=== PATIENT | female | born 1960 | race Caucasian/White ===

== ENCOUNTER 2017-03-22 18:01 | Inpatient (IN) | payer BC ==
[2017-03-22 18:57] LABS: Comments Flag Yes; Hematocrit 46 % (35-47); Hemoglobin 15.8 g/dl (12.0-16.0); Mean Corpuscular HGB Conc 35 g/dl (31-36); Mean Corpuscular Hemoglobin 32 pg (27-31); Mean Corpuscular Volume 93 fL (80-97); Mean Platelet Volume 8 um3 (7.4-10.4); Red Blood Count 4.88 10^6/ul (4.0-5.4); Red Cell Distribution Width 16 % (10.5-15); White Blood Count 2.1 10^3/ul (3.5-10.8)
[2017-03-22 18:58] LABS: Add Diff/Slide Review? Slide Review Added
[2017-03-22 19:01] LABS: Albumin 4.2 g/dL (3.2-5.2); Calcium 9.5 mg/dL (8.6-10.3); EGFR African American 60.5 (>60); Globulin 3.6 g/dL (2-4); Total Bilirubin 0.9 mg/dL (0.2-1.0); Total Protein 7.8 g/dL (6.4-8.9)
[2017-03-22] MEDS ORDERED: NS 0.9% 1000 ML* 1,000 ML IV ONE ×2 (19:28→22:37)
[2017-03-22 19:49] LABS: Potassium 3.2 mmol/L (3.5-5.0)
[2017-03-22] MEDS ORDERED: Potassium Chlor TAB* 20 MEQ TAB.ER PO ONE (20:35)
[2017-03-22] MEDS ORDERED: NS 0.9% 1000 ML* 2,000 ML IV ONE (21:10)
[2017-03-22] MEDS ORDERED: Levofloxacin 750 MG IVPREMIX(* 750 MG/150 ML BAG IVPB ONE (22:36)
[2017-03-22] MEDS ORDERED: metroNIDAZOLE IV 500 MG/100ML* 500 MG/100 ML BAG IVPB ONE (22:37)
[2017-03-22] MEDS ORDERED: Acetaminophen TAB* 325 MG PO ONE (22:38)
[2017-03-22] MEDS ORDERED: Iodixanol* (CONTRAST) 320 MG/ML 100 ML SDV IV ONE (22:46)
[2017-03-22] MEDS ORDERED: Ibuprofen TAB* 800 MG PO ONE (23:54)
--- NOTE | 2017-03-23 00:52 | ED ---
Duc Seaman Thomas, scribed for Florence Harper MD on 03/22/17 at 1936 . Complex/Multi-Sys Presentation - HPI Summary HPI Summary: The patient is a 56 year old female presenting to the ED with decreased PO intake and generalized weakness. The patient has lung cancer diagnosed one year ago with metastases to her kidney, breast, and elsewhere in her lungs. She is on chemotherapy with her last chemotherapy five days ago. Her next chemotherapy is in two weeks. The patient did vomit after she drank a milkshake earlier today. Patient denies fever, any pain, and SOB. - History Of Current Complaint Chief Complaint: EDAltMentalStatus Time Seen by Provider: 03/22/17 19:19 Hx Obtained From: Patient Onset/Duration: Still Present Timing: Constant Severity Currently: Moderate Location: Negative Aggravating Factor(s): Nothing Alleviating Factor(s): Nothing Associated Signs And Symptoms: Negative: Other - Decreased PO intake, generalized weakness, vomiting; NEGATIVE: fever, any pain, SOB - Allergies/Home Medications Allergies/Adverse Reactions: Allergies Allergy/AdvReac Type Severity Reaction Status Date / Time Penicillins Allergy Rash Verified 03/22/17 18:07 PMH/Surg Hx/FS Hx/Imm Hx Previously Healthy: No Endocrine/Hematology History: Denies: Hx Diabetes Cardiovascular History: Reports: Hx Hypertension Denies: Hx Pacemaker/ICD History: Denies: Hx Renal Disease Sensory History: Denies: Hx Hearing Aid Psychiatric History: Denies: Hx Panic Disorder - Cancer History Cancer Type, 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 HYSTERECTOMY Infectious Disease History: No Infectious Disease History: Denies: Traveled Outside the [place] in Last 30 Days - Family History Known Family History: Positive: Other - Patient denies relevat FHx - Social History Alcohol Use: None Substance Use Type: Reports: None Smoking Status (MU): Unknown if Ever Smoked Review of Systems Positive: Other - Decreased PO intake, generalized weakness. Negative: Fever Negative: Shortness Of Breath Positive: Vomiting Negative: Other - any pain All Other Systems Reviewed And Are Negative: Yes Physical Exam - Summary Physical Exam Summary: VITAL SIGNS: Reviewed. GENERAL: Patient is a female who is lying comfortable in the stretcher. The patient seems alert and oriented but she is somewhat lethargic. Patient is not in any acute respiratory distress. HEAD AND FACE: No signs of trauma. No ecchymosis, hematomas or skull depressions. No sinus tenderness. EYES: PERRLA, EOMI x 2, No injected conjunctiva, no nystagmus. EARS: Hearing grossly intact. Ear canals and tympanic membranes are within normal limits. MOUTH: Oropharynx within normal limits. NECK: Supple, trachea is midline, no adenopathy, no JVD, no carotid bruit, no c- spine tenderness, neck with full ROM. CHEST: Symmetric, no tenderness at palpation LUNGS: Clear to auscultation bilaterally. No wheezing or crackles. CVS: Regular rate and rhythm, S1 and S2 present, no murmurs or gallops appreciated. ABDOMEN: Soft, non-tender. No signs of distention. No rebound no guarding, and no masses palpated. Bowel sounds are normal. EXTREMITIES: She has trace pedal edema. FROM in all major joints, no cyanosis or clubbing. NEURO: The patient seems alert and oriented but she is somewhat lethargic. No acute neurological deficits. Speech is normal and follows commands. SKIN: Dry and warm Triage Information Reviewed: Yes Vital Signs On Initial Exam: Initial Vitals Temp Pulse Resp BP Pulse Ox 98.2 F 120 14 106/68 97 03/22/17 18:05 03/22/17 18:05 03/22/17 18:05 03/22/17 18:05 03/22/17 18:05 Vital Signs Reviewed: Yes - Rickman Coma Scale Coma Scale Total: 14 Diagnostics - Vital Signs Vital Signs Temp Pulse Resp BP Pulse Ox 03/22/17 18:30 118 25 111/70 97 03/22/17 18:18 111 20 97 03/22/17 18:16 113/75 03/22/17 18:05 98.2 F 120 14 106/68 97 - Laboratory Lab Results: Lab Results 03/22/17 03/22/17 Range/Units 18:30 18:30 WBC 2.1 L (3.5-10.8) 10^3/ul RBC 4.88 (4.0-5.4) 10^6/ul Hgb 15.8 (12.0-16.0) g/dl Hct 46 (35-47) % MCV 93 (80-97) fL MCH 32 H (27-31) pg MCHC 35 (31-36) g/dl RDW 16 H (10.5-15) % Plt Count 350 (150-450) 10^3/ul MPV 8 (7.4-10.4) um3 Neut % (Auto) 69.8 (38-83) % Lymph % (Auto) 21.5 L (25-47) % [place] % (Auto) 7.8 (1-9) % Eos % (Auto) 0.7 (0-6) % Baso % (Auto) 0.2 (0-2) % Absolute Neuts (auto) 1.5 (1.5-7.7) 10^3/ul Absolute Lymphs (auto) 0.5 L (1.0-4.8) 10^3/ul Absolute Monos (auto) 0.2 (0-0.8) 10^3/ul Absolute Eos (auto) 0 (0-0.6) 10^3/ul Absolute Basos (auto) 0 (0-0.2) 10^3/ul Absolute Nucleated RBC 0 10^3/ul Nucleated RBC % 0.2 Sodium 128 L (133-145) mmol/L Potassium Pending Chloride 92 L (101-111) mmol/L Carbon Dioxide 25 (22-32) mmol/L Anion Gap Pending BUN 13 (6-24) mg/dL Creatinine 1.18 H (0.51-0.95) mg/dL Est GFR ( Amer) 60.5 (>60) Est GFR (Non-Af Amer) 47.0 (>60) BUN/Creatinine Ratio 11.0 (8-20) Glucose 141 H (70-100) mg/dL Calcium 9.5 (8.6-10.3) mg/dL Total Bilirubin 0.90 (0.2-1.0) mg/dL AST Pending ALT 29 (7-52) U/L Alkaline Phosphatase 52 (34-104) U/L Total Protein 7.8 (6.4-8.9) g/dL Albumin 4.2 (3.2-5.2) g/dL Globulin 3.6 (2-4) g/dL Albumin/Globulin Ratio 1.2 (1-3) Result Diagrams: 03/22/17 18:30 03/22/17 18:30 Lab Statement: Any lab studies that have been ordered have been reviewed, and results considered in the medical decision making process. - Radiology CXR\ Xray Interpretation: No Acute Changes - negative for acute process, pending official report Radiology Interpretation Completed By: ED Physician - CT CT Abd/Pel CT Interpretation: Positive (See Comments) - Colonic thickening suggesting possible colitis. Fluid in colon suggest clinical history of diarrhea. This is new relative to the previous study. Enhancing mass in the retroperitoneum concerning for metastatic disease. This is diminished in size relative to the prior study suggesting response to chemotherapy. Left adrenal nodule is indeterminate but appears slightly enlarged relative to the prior study concerning for metastatic involvement. CT Interpretation Completed By: ED Physician Complex Multi-Symp Course/Dx Assessment/Plan: The patient started to have diarrhea in the ED. I talked further with the patient and she says she has been gaving diarrhea since yesterday. Her temperature is 99.8 and her blood pressure is 83/46. The patient will be treated as sepsis. A CT Abd/Pel was ordered, as well as a CXR, blood cultures, and lactic acid. The patient was given antibiotics. The patient is diagnosed with colitis and metastatic lung cancer. She is admitted by Dr. Jeffers. - Diagnoses Provider Diagnoses: Colitis, Metastatic lung cancer (metastasis from lung to other site) - Physician Notifications Discussed Care Of Patient With: Jose Jeffers Time Discussed With Above Provider: 00:47 Instructed by Provider To: Admit As Inpatient Discharge - Discharge Plan Condition: Fair Disposition: ADMITTED TO [facility] Referrals: Belen COBB,Wild Huynh [Primary Care Provider] - The documentation as recorded by the Duc bhatt Thomas accurately reflects the service I personally performed and the decisions made by me, Florence Harper MD.
[2017-03-23] MEDS ORDERED: CMCS: Melatonin (NF) 3 MG TAB PO PRN (00:54)
[2017-03-23] MEDS ORDERED: Acetaminophen TAB* 325 MG PO PRN (00:54)
[2017-03-23] MEDS ORDERED: Albuterol 2.5 MG/3 ML NEB.SOL* (0.083%) INH PRN (00:54)
[2017-03-23 01:44] LABS: Hematocrit 35 % (35-47); Mean Corpuscular HGB Conc 34 g/dl (31-36); Mean Corpuscular Hemoglobin 32 pg (27-31); Mean Corpuscular Volume 93 fL (80-97); Mean Platelet Volume 8 um3 (7.4-10.4); Red Blood Count 3.75 10^6/ul (4.0-5.4); Red Cell Distribution Width 16 % (10.5-15); White Blood Count 1.5 10^3/ul (3.5-10.8)
[2017-03-23 01:45] LABS: Add Diff/Slide Review? Slide Review Added; Comments Flag Yes
[2017-03-23 01:58] LABS: EGFR Non-African American 66.9 (>60)
[2017-03-23 02:07] LABS: Immature Granulocytes 20 % (0-9); Neutrophil % 43 % (38-83); RBC Morphology Normal (Normal); Reactive Lymph % 5 % (0-6); Toxic Granulation 1+
[2017-03-23 02:55] LABS: Urine Bilirubin Negative (Negative); Urine Glucose Negative (Negative); Urine Nitrite Negative (Negative)
[2017-03-23] MEDS: NS 0.9% 1000 ML* 1,000 ML IV SCH ×3 (03:10→06:01)
[2017-03-23] MEDS ORDERED: NS 0.9% 1000 ML* 1,000 ML IV ONE ×2 (03:20→04:55)
[2017-03-23 05:52] LABS: Hematocrit 32 % (35-47); Hemoglobin 10.9 g/dl (12.0-16.0); Mean Corpuscular HGB Conc 35 g/dl (31-36); Mean Corpuscular Hemoglobin 33 pg (27-31); Mean Corpuscular Volume 95 fL (80-97); Mean Platelet Volume 8 um3 (7.4-10.4); Red Blood Count 3.33 10^6/ul (4.0-5.4); Red Cell Distribution Width 16 % (10.5-15)
[2017-03-23 05:54] LABS: Comments Flag Yes; White Blood Count 1.4 10^3/ul (3.5-10.8)
[2017-03-23 06:05] LABS: BUN/Creatinine Ratio 14.3 (8-20); EGFR African American 89.6 (>60); EGFR Non-African American 69.6 (>60)
--- NOTE | 2017-03-23 06:07 | HP ---
H&P (Free Text) History and Physical: PCP: Ana Glover MD Oncology: Shaina Vieira MD Date/Time: 03/23/2017 0030 CC: generalized weakness, diarrhea HPI: Mrs Marie is a 56YO female HX non-small cell lung CA on treatment with last chemoTX given last Thursday. She relates onset of 8-10 watery diarrheal stools without black or bloody aspect starting Thursday before last (~9 days ago) . She has been becoming progressively generally weak over the last 24h. She has had no ABX recently nor travelled outside the area. She had a single episode of N/V here in the ED, but denies subjective F/C, sweats, chest pain, SOB, cough, congestion, B/U/F of urine, earache, sore throat, rash, and open wound. 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 etiology; 3 sisters, one with hypothyroidism & COPD, 2 healthy; 3 brothers, one with hypothyroidism, 2 healthy ROS: as above, otherwise reviewed and all were negative vitals: Vital Signs Temp 36.4 C 03/23/17 04:50 Pulse 76 03/23/17 04:50 Resp 18 03/23/17 04:50 BP 84/49 03/23/17 04:50 Pulse Ox 100 03/23/17 05:07 Intake & Output 03/22/17 03/22/17 03/23/17 11:59 23:59 11:59 Intake Total 1999 2209 Balance 1999 2209 Weight 68.039 kg 68.039 kg Intake: IV Fluids 1999 2100 NS BOLUS 1000 IVPB 110 LEVOQUIN 110 Constitutional: NAD, normally developed, well-nourished white female HEENM: atraumatic; sclera/conjunctiva: anicteric/clear hearing: clinically intact; oropharynx: clear, mucosa dry Neck: soft tissue: no nuchal rigidity; thyroid: normal Pulmonary: clear to auscultation bilaterally, good aeration, no accessory muscle use CV: RR/RR, normal S1S2, no carotid bruit, no jugular venous distention, 2+ B DP/ PT, no edema Abdominal: soft, non-distended, non-tender, no rebound/guarding/rigidity, normoactive bowel sounds, no hepatosplenomegaly or masses, no costovertebral angle tenderness Musculoskeletal: general: grossly intact, no palpable tenderness Integumental: normal appearance and texture of exposed skin Psychiatric orientation: AA&O to PPS affect: calm mood: cooperative eye contact: good content: reliable responses: timely insight: good Testing: Lab Results 03/22/17 03/22/17 03/22/17 Range/Units 18:30 18:30 23:59 WBC 2.1 L (3.5-10.8) 10^3/ul RBC 4.88 (4.0-5.4) 10^6/ul Hgb 15.8 (12.0-16.0) g/dl Hct 46 (35-47) % MCV 93 (80-97) fL MCH 32 H (27-31) pg MCHC 35 (31-36) g/dl RDW 16 H (10.5-15) % Plt Count 350 (150-450) 10^3/ul MPV 8 (7.4-10.4) um3 Immature Gran % (Auto) (0-9) % Neut % (Auto) 69.8 (38-83) % Lymph % (Auto) 21.5 L (25-47) % [place] % (Auto) 7.8 (1-9) % Eos % (Auto) 0.7 (0-6) % Baso % (Auto) 0.2 (0-2) % Absolute Neuts (auto) 1.5 (1.5-7.7) 10^3/ul Absolute Lymphs (auto) 0.5 L (1.0-4.8) 10^3/ul Absolute Monos (auto) 0.2 (0-0.8) 10^3/ul Absolute Eos (auto) 0 (0-0.6) 10^3/ul Absolute Basos (auto) 0 (0-0.2) 10^3/ul Absolute Nucleated RBC 0 10^3/ul Neutrophils % (38-83) % Band Neutrophils % (0-8) % Lymphocytes % (25-47) % Reactive Lymphs % (0-6) % Monocytes % (0-13) % Basophils % (0-2) % Nucleated RBC % 0.2 Toxic Granulation Normal RBC Morphology (Normal) INR (Anticoag Therapy) (0.77-1.02) APTT (26.0-36.3) seconds Sodium 128 L (133-145) mmol/L Potassium 3.2 L (3.5-5.0) mmol/L Chloride 92 L (101-111) mmol/L Carbon Dioxide 25 (22-32) mmol/L Anion Gap 11 (2-11) mmol/L BUN 13 (6-24) mg/dL Creatinine 1.18 H (0.51-0.95) mg/dL Est GFR ( Amer) 60.5 (>60) Est GFR (Non-Af Amer) 47.0 (>60) BUN/Creatinine Ratio 11.0 (8-20) Glucose 141 H (70-100) mg/dL Lactic Acid 1.2 (0.5-2.0) mmol/L Calcium 9.5 (8.6-10.3) mg/dL Total Bilirubin 0.90 (0.2-1.0) mg/dL AST 21 (13-39) U/L ALT 29 (7-52) U/L Alkaline Phosphatase 52 (34-104) U/L Total Protein 7.8 (6.4-8.9) g/dL Albumin 4.2 (3.2-5.2) g/dL Globulin 3.6 (2-4) g/dL Albumin/Globulin Ratio 1.2 (1-3) Urine Color Urine Appearance Urine pH (5-9) Ur Specific [place] (1.010-1.030) Urine Protein (Negative) Urine Ketones (Negative) Urine Blood (Negative) Urine Nitrate (Negative) Urine Bilirubin (Negative) Urine Urobilinogen (Negative) Ur Leukocyte Esterase (Negative) Urine Glucose (Negative) 03/23/17 03/23/17 03/23/17 Range/Units 01:22 01:22 01:22 WBC 1.5 L (3.5-10.8) 10^3/ul RBC 3.75 L (4.0-5.4) 10^6/ul Hgb 12.0 (12.0-16.0) g/dl Hct 35 (35-47) % MCV 93 (80-97) fL MCH 32 H (27-31) pg MCHC 34 (31-36) g/dl RDW 16 H (10.5-15) % Plt Count 256 (150-450) 10^3/ul MPV 8 (7.4-10.4) um3 Immature Gran % (Auto) 20 H (0-9) % Neut % (Auto) 64.2 (38-83) % Lymph % (Auto) 23.2 L (25-47) % [place] % (Auto) 11.6 H (1-9) % Eos % (Auto) 0.6 (0-6) % Baso % (Auto) 0.4 (0-2) % Absolute Neuts (auto) 1.0 L (1.5-7.7) 10^3/ul Absolute Lymphs (auto) 0.3 L (1.0-4.8) 10^3/ul Absolute Monos (auto) 0.2 (0-0.8) 10^3/ul Absolute Eos (auto) 0 (0-0.6) 10^3/ul Absolute Basos (auto) 0 (0-0.2) 10^3/ul Absolute Nucleated RBC 0 10^3/ul Neutrophils % 43 (38-83) % Band Neutrophils % 20 H (0-8) % Lymphocytes % 18 L (25-47) % Reactive Lymphs % 5 (0-6) % Monocytes % 13 (0-13) % Basophils % 1 (0-2) % Nucleated RBC % 0 Toxic Granulation 1+ Normal RBC Morphology Normal (Normal) INR (Anticoag Therapy) 1.20 H (0.77-1.02) APTT 26.9 (26.0-36.3) seconds Sodium (133-145) mmol/L Potassium (3.5-5.0) mmol/L Chloride (101-111) mmol/L Carbon Dioxide (22-32) mmol/L Anion Gap (2-11) mmol/L BUN 12 (6-24) mg/dL Creatinine 0.87 (0.51-0.95) mg/dL Est GFR ( Amer) 86.0 (>60) Est GFR (Non-Af Amer) 66.9 (>60) BUN/Creatinine Ratio (8-20) Glucose (70-100) mg/dL Lactic Acid (0.5-2.0) mmol/L Calcium (8.6-10.3) mg/dL Total Bilirubin (0.2-1.0) mg/dL AST (13-39) U/L ALT (7-52) U/L Alkaline Phosphatase (34-104) U/L Total Protein (6.4-8.9) g/dL Albumin (3.2-5.2) g/dL Globulin (2-4) g/dL Albumin/Globulin Ratio (1-3) Urine Color Urine Appearance Urine pH (5-9) Ur Specific [place] (1.010-1.030) Urine Protein (Negative) Urine Ketones (Negative) Urine Blood (Negative) Urine Nitrate (Negative) Urine Bilirubin (Negative) Urine Urobilinogen (Negative) Ur Leukocyte Esterase (Negative) Urine Glucose (Negative) 03/23/17 Range/Units 02:28 WBC (3.5-10.8) 10^3/ul RBC (4.0-5.4) 10^6/ul Hgb (12.0-16.0) g/dl Hct (35-47) % MCV (80-97) fL MCH (27-31) pg MCHC (31-36) g/dl RDW (10.5-15) % Plt Count (150-450) 10^3/ul MPV (7.4-10.4) um3 Immature Gran % (Auto) (0-9) % Neut % (Auto) (38-83) % Lymph % (Auto) (25-47) % [place] % (Auto) (1-9) % Eos % (Auto) (0-6) % Baso % (Auto) (0-2) % Absolute Neuts (auto) (1.5-7.7) 10^3/ul Absolute Lymphs (auto) (1.0-4.8) 10^3/ul Absolute Monos (auto) (0-0.8) 10^3/ul Absolute Eos (auto) (0-0.6) 10^3/ul Absolute Basos (auto) (0-0.2) 10^3/ul Absolute Nucleated RBC 10^3/ul Neutrophils % (38-83) % Band Neutrophils % (0-8) % Lymphocytes % (25-47) % Reactive Lymphs % (0-6) % Monocytes % (0-13) % Basophils % (0-2) % Nucleated RBC % Toxic Granulation Normal RBC Morphology (Normal) INR (Anticoag Therapy) (0.77-1.02) APTT (26.0-36.3) seconds Sodium (133-145) mmol/L Potassium (3.5-5.0) mmol/L Chloride (101-111) mmol/L Carbon Dioxide (22-32) mmol/L Anion Gap (2-11) mmol/L BUN (6-24) mg/dL Creatinine (0.51-0.95) mg/dL Est GFR ( Amer) (>60) Est GFR (Non-Af Amer) (>60) BUN/Creatinine Ratio (8-20) Glucose (70-100) mg/dL Lactic Acid (0.5-2.0) mmol/L Calcium (8.6-10.3) mg/dL Total Bilirubin (0.2-1.0) mg/dL AST (13-39) U/L ALT (7-52) U/L Alkaline Phosphatase (34-104) U/L Total Protein (6.4-8.9) g/dL Albumin (3.2-5.2) g/dL Globulin (2-4) g/dL Albumin/Globulin Ratio (1-3) Urine Color Yellow Urine Appearance Clear Urine pH 5.0 (5-9) Ur Specific [place] > 1.060 H (1.010-1.030) Urine Protein Negative (Negative) Urine Ketones Trace H (Negative) Urine Blood Negative (Negative) Urine Nitrate Negative (Negative) Urine Bilirubin Negative (Negative) Urine Urobilinogen Negative (Negative) Ur Leukocyte Esterase Negative (Negative) Urine Glucose Negative (Negative) CXR, personally reviewed: no acute process CT abd/pel W, personally reviewed: IMPRESSION: Colonic thickening suggesting possible colitis. Fluid in colon, suggest clinical history of diarrhea. this new relative to the previous study. Enhancing mass in the retroperitoneum concerning for metastatic disease. This is diminished in size relative to the prior study suggesting response to chemotherapy. Left adrenal nodule is indeterminate but appears slightly enlarged relative to the prior study concerning for metastatic involvement. Impression: 56F HX non-small cell lung CA metastatic to retroperitoneum & ? L adrenal presenting with positive SIRS screen (leukopenia & HR>90) 2nd colitis DIAGNOSIS & PLAN Primary SIRS 2nd colitis : IVFs : IV levofloxacin & PO metronidazole : blood CX : supportive care hypotension 2nd volume depletion 2nd above : mentating normally w/ good urine production per nursing : IVFs, trend BP : hold anti-hypertensives for now Secondary non-small cell lung CA on treatment : continue management per oncology HTN : hold amlodipine & triamterene Admission Rational: inpatient for TX of SIRS 2nd colitis w/ dehydration in patient at risk of rapid decompensation; inappropriate for the outpatient setting DVTp: SCDs & heparin SQ Code Status: full HCP:
[2017-03-23] MEDS: Omeprazole CAP* 20 MG PO SCH (06:25)
[2017-03-23] MEDS: metroNIDAZOLE TAB* 250 MG PO SCH ×4 (06:25→20:36)
[2017-03-23 06:30] LABS: Potassium 2.7 mmol/L (3.5-5.0)
[2017-03-23] MEDS ORDERED: Magnesium Sulfate 2 GM IV* 2 GM/50 ML BAG IVPB ONE (06:35)
[2017-03-23] MEDS: Potassium Chlor TAB* 20 MEQ TAB.ER PO SCH ×2 (07:05→10:56)
[2017-03-23 07:45] LABS: Magnesium 1.2 mg/dL (1.9-2.7)
--- NOTE | 2017-03-23 07:47 | RAD ---
INDICATION: Pneumonia. COMPARISON: Comparison is made with a prior chest x-ray study from April 01, 2016 and a prior PET/CT study from May 09, 2016. Correlation is also made with a prior CT of the chest from February 19, 2017. TECHNIQUE: AP views of the chest were obtained. FINDINGS: The heart is within normal limits in size. The lungs are underinflated. There is increased density in the left hilar region and overlying the left upper lobe which appears to correlate with parenchymal densities on the most recent prior CT of the chest from February 2017. There was large mass in this region on the study from April 2016. The densities appear unchanged from the recent CT of the chest and may represent post therapy changes. No pleural effusion is seen. IMPRESSION: 1. NO EVIDENCE FOR ACUTE FINDING. 2. PARENCHYMAL DENSITIES IN THE LEFT UPPER LOBE WHICH CORRELATE WITH ABNORMALITIES NOTED ON THE RECENT PRIOR CT OF THE CHEST MAY REPRESENT POSTTHERAPY CHANGES. RECOMMEND CLINICAL CORRELATION AND FOLLOW-UP
[2017-03-23] MEDS: Docusate CAP* 100 MG PO SCH ×2 (07:50→20:37)
--- NOTE | 2017-03-23 08:00 | RAD ---
INDICATION: Small cell carcinoma of the left lung, weakness and loss of appetite. COMPARISON: Comparison is made with an outside CT of the abdomen and pelvis from February 19, 2017. TECHNIQUE: A CT scan of the abdomen and pelvis was performed with intravenous and without oral contrast following intravenous injection of 85 ml of Visipaque 320 nonionic contrast. Contiguous axial sections were obtained from the lung bases through the symphysis pubis. Images were reconstructed in the coronal and sagittal planes. FINDINGS: The lung bases are clear. No pleural effusion is present. The liver is normal in size without significant focal abnormality. No calcified gallstones are seen. The pancreas appears to be within normal limits. The spleen is very small in size. The kidneys are normal in size. No renal calculi or hydronephrosis is seen. There are 2 masses present adjacent to the right kidney. The larger mass is present along the anterior inferior aspect of the kidney measuring 2.5 x 2.3 cm in size. This is decreased slightly in size from the prior study and previously measured 3.1 x 2.5 cm. The second mass is located adjacent the posterior superior aspect of the right kidney and has also decreased decreased in size measuring 2.3 x 1.8 and previously measuring 3.5 x 2.2 cm in size. There is a small left adrenal mass measuring 0.9 cm in size which is unchanged from the recent prior CT of the abdomen although new from a prior CT of the chest from November 14, 2016 and therefore suspicious for metastatic disease. No additional large retroperitoneal lymph nodes are seen. The aorta is normal in caliber with mild calcific plaque present. The stomach, small and large bowel appear nondistended. The appendix is within normal limits. There is fluid within the colon. There is thickening of the wall of the distal transverse and proximal descending colon with mild stranding in the adjacent mesenteric fat suggestive of colitis. The patient is status post hysterectomy. No free intraperitoneal air or fluid is seen. No significant focal osseous abnormality is seen. IMPRESSION: 1. THICKENING OF THE WALL OF THE DISTAL TRANSVERSE AND PROXIMAL DESCENDING COLON MOST CONSISTENT WITH COLITIS. 2. MASSES ADJACENT TO THE RIGHT KIDNEY MOST CONSISTENT WITH METASTATIC DISEASE DECREASED IN SIZE FROM THE PRIOR EXAM. 3. SMALL LEFT ADRENAL MASS ALSO MOST CONSISTENT WITH METASTATIC DISEASE, UNCHANGED.
--- NOTE | 2017-03-23 10:02 | PN ---
Progress Note - Progress Note Date of Service: 03/23/17 SOAP: Subjective: []Admitted overnight with colitis. Tuesday 03/20 started feeling poorly. Had been having diarrhea for over a week ( C1D1 Irinotecan 03/10) and though she was using imodium (avg. 4 tabs/day with up to 6 stools/day) she wasn't eating well. Thursday when grandkids came over she didn't want to get up and this really wasn't like her (per ). Seen in office 03/19 with concern for breast lump (known mass on CT) and at that time denies severe N/V/D. Today feels tired. Denies dizziness and lightheadedness. Has some cramping, though nothing severe. No fevers/chills/night sweats. Medications: Acetaminophen (Tylenol Tab*) 650 mg PO Q6H PRN PRN Reason: FEVER/PAIN Albuterol (Ventolin 2.5 Mg/3 Ml Neb.Bertha*) 2.5 mg INH Q2H PRN PRN Reason: SOB/WHEEZING Docusate Sodium (Colace Cap*) 200 mg PO BID [facility] Last Admin: 03/23/17 07:50 Dose: Not Given Heparin Sodium (Porcine) (Heparin Vial(*)) 5,000 units SUBCUT Q8HR [facility] Levofloxacin/Dextrose (Levaquin 750 Mg Ivpremix(*)) 750 mg in 150 mls @ 100 mls /hr IVPB Q24H [facility] Potassium Chloride/Sodium Chloride (Ns 0.9% W/ 40 Meq Kcl 1000 Ml*) 1,000 mls @ 125 mls/hr IV PER RATE [facility] Melatonin (Melatonin (Nf)) 3 mg PO BEDTIME PRN; Protocol PRN Reason: Sleep Metronidazole (Flagyl Tab*) 500 mg PO TID [facility] Last Admin: 03/23/17 07:50 Dose: Not Given Omeprazole (Prilosec Cap*) 20 mg PO DAILY@0600 [facility] Last Admin: 03/23/17 06:25 Dose: 20 mg Ondansetron HCl (Zofran Inj*) 4 mg IV Q6H PRN PRN Reason: NAUSEA Potassium Chloride (Klor Con Er Tab*) 40 meq PO Q4H [facility] Stop: 03/23/17 11:01 Last Admin: 03/23/17 07:05 Dose: 40 meq Objective: [] Vital Signs Temp Pulse Resp BP Pulse Ox 97.3 F 77 18 78/50 99 03/23/17 07:15 03/23/17 07:15 03/23/17 07:20 03/23/17 07:25 03/23/17 07:15 A&Ox3, EOMI, PERRLA, BEE, neuro grossly non-focal HRR, S1S2, no murmur noted LS clear bilat., though left slightly diminished (known mass) +BS, abd. soft and only mildly tender +PP=bilat., no edema noted Laboratory Results - last 24 hr 03/22/17 03/22/17 03/22/17 18:30 18:30 23:59 WBC 2.1 L RBC 4.88 Hgb 15.8 Hct 46 MCV 93 MCH 32 H MCHC 35 RDW 16 H Plt Count 350 MPV 8 Immature Gran % (Auto) Neut % (Auto) 69.8 Lymph % (Auto) 21.5 L [place] % (Auto) 7.8 Eos % (Auto) 0.7 Baso % (Auto) 0.2 Absolute Neuts (auto) 1.5 Absolute Lymphs (auto) 0.5 L Absolute Monos (auto) 0.2 Absolute Eos (auto) 0 Absolute Basos (auto) 0 Absolute Nucleated RBC 0 Neutrophils % Band Neutrophils % Lymphocytes % Reactive Lymphs % Monocytes % Basophils % Nucleated RBC % 0.2 Toxic Granulation Normal RBC Morphology INR (Anticoag Therapy) APTT Sodium 128 L Potassium 3.2 L Chloride 92 L Carbon Dioxide 25 Anion Gap 11 BUN 13 Creatinine 1.18 H Est GFR ( Amer) 60.5 Est GFR (Non-Af Amer) 47.0 BUN/Creatinine Ratio 11.0 Glucose 141 H Lactic Acid 1.2 Calcium 9.5 Magnesium Total Bilirubin 0.90 AST 21 ALT 29 Alkaline Phosphatase 52 Total Protein 7.8 Albumin 4.2 Globulin 3.6 Albumin/Globulin Ratio 1.2 Urine Color Urine Appearance Urine pH Ur Specific Fenton Urine Protein Urine Ketones Urine Blood Urine Nitrate Urine Bilirubin Urine Urobilinogen Ur Leukocyte Esterase Urine Glucose 03/23/17 03/23/17 03/23/17 01:22 01:22 01:22 WBC 1.5 L RBC 3.75 L Hgb 12.0 Hct 35 MCV 93 MCH 32 H MCHC 34 RDW 16 H Plt Count 256 MPV 8 Immature Gran % (Auto) 20 H Neut % (Auto) 64.2 Lymph % (Auto) 23.2 L [place] % (Auto) 11.6 H Eos % (Auto) 0.6 Baso % (Auto) 0.4 Absolute Neuts (auto) 1.0 L Absolute Lymphs (auto) 0.3 L Absolute Monos (auto) 0.2 Absolute Eos (auto) 0 Absolute Basos (auto) 0 Absolute Nucleated RBC 0 Neutrophils % 43 Band Neutrophils % 20 H Lymphocytes % 18 L Reactive Lymphs % 5 Monocytes % 13 Basophils % 1 Nucleated RBC % 0 Toxic Granulation 1+ Normal RBC Morphology Normal INR (Anticoag Therapy) 1.20 H APTT 26.9 Sodium Potassium Chloride Carbon Dioxide Anion Gap BUN 12 Creatinine 0.87 Est GFR ( Amer) 86.0 Est GFR (Non-Af Amer) 66.9 BUN/Creatinine Ratio Glucose Lactic Acid Calcium Magnesium 1.2 L Total Bilirubin AST ALT Alkaline Phosphatase Total Protein Albumin Globulin Albumin/Globulin Ratio Urine Color Urine Appearance Urine pH Ur Specific Fenton Urine Protein Urine Ketones Urine Blood Urine Nitrate Urine Bilirubin Urine Urobilinogen Ur Leukocyte Esterase Urine Glucose 03/23/17 03/23/17 03/23/17 02:28 05:15 05:15 WBC 1.4 L RBC 3.33 L Hgb 10.9 L Hct 32 L MCV 95 MCH 33 H MCHC 35 RDW 16 H Plt Count 223 MPV 8 Immature Gran % (Auto) Neut % (Auto) 68.1 Lymph % (Auto) 20.0 L [place] % (Auto) 7.8 Eos % (Auto) 3.9 Baso % (Auto) 0.2 Absolute Neuts (auto) 1.0 L Absolute Lymphs (auto) 0.3 L Absolute Monos (auto) 0.1 Absolute Eos (auto) 0.1 Absolute Basos (auto) 0 Absolute Nucleated RBC 0.01 Neutrophils % Band Neutrophils % Lymphocytes % Reactive Lymphs % Monocytes % Basophils % Nucleated RBC % 0.7 Toxic Granulation Normal RBC Morphology INR (Anticoag Therapy) APTT Sodium 134 Potassium 2.7 L* Chloride 107 Carbon Dioxide 19 L Anion Gap 8 BUN 12 Creatinine 0.84 Est GFR ( Amer) 89.6 Est GFR (Non-Af Amer) 69.6 BUN/Creatinine Ratio 14.3 Glucose 105 H Lactic Acid Calcium 7.0 L Magnesium Total Bilirubin AST ALT Alkaline Phosphatase Total Protein Albumin Globulin Albumin/Globulin Ratio Urine Color Yellow Urine Appearance Clear Urine pH 5.0 Ur Specific Fenton > 1.060 H Urine Protein Negative Urine Ketones Trace H Urine Blood Negative Urine Nitrate Negative Urine Bilirubin Negative Urine Urobilinogen Negative Ur Leukocyte Esterase Negative Urine Glucose Negative Assessment: []56 yo female with metastatic SCLC currently receiving second line chemotherapy with Irinotecan (C1D14 today) presenting to the hospital with colitis. At this time I do not feel this is infectious and although she met SIRS criteria I believe she was severely dehydration d/t diarrhea. Her shiga toxin is still pending and once this returns negative I will initiate aggressive anti-diarrheal management. Plan: []1. Colitis: chemotherapy induced unless proven otherwise. Continue abx. through tomorrow if cultures negative can stop. Expected with Irinotecan and will need more pro-active approach to management for future cycles, though she may also require 20% dose reduction as d/t admission she has grade 3 toxicity. Hold on anti-diarrheals until neg. shiga toxin. 2. Electrolyte abnormalities: secondary to fluid loss from colitis, also may be partially r/t dilution. Cont. IV fluids, but will add KCl. Cont. PO replacement and IV mag. Recheck K+ and Mg @ 1300 today. 3. Hypotension: hold BP meds, follow for now, and cont. IV fluids. 4. Neutropenia: chemotherapy induced, appropriate timing (Doc expected D14 with recovery by D21-28). Reverse isolation and follow. 5. DVT prophylaxis: agree with SCDs and heparin Goal of home in next day or so once diarrhea better managed, labs stable, and BP up.
[2017-03-23] MEDS: NS 0.9% w/ 40 Meq KCL 1000 ML* 1,000 ML IV SCH ×2 (10:12→19:43)
[2017-03-23 13:26] LABS: Potassium 3.4 mmol/L (3.5-5.0)
[2017-03-23] MEDS: Heparin VIAL(*) 5000 UNITS/ML VIAL (FIVE THOUSAND) SUBCUT SCH ×3 (13:51→21:27)
[2017-03-23] MEDS ORDERED: Diphenoxylat/Atrop 2.5-0.025M* 1 TAB PO PRN (16:54)
[2017-03-23] MEDS ORDERED: Levofloxacin 750 MG IVPREMIX(* 750 MG/150 ML BAG IVPB SCH (22:00)
[2017-03-24] MEDS: Omeprazole CAP* 20 MG PO SCH (04:57)
[2017-03-24] MEDS: NS 0.9% w/ 40 Meq KCL 1000 ML* 1,000 ML IV SCH (04:58)
[2017-03-24] MEDS: Heparin VIAL(*) 5000 UNITS/ML VIAL (FIVE THOUSAND) SUBCUT SCH ×3 (05:00→21:09)
[2017-03-24 05:37] LABS: Hematocrit 29 % (35-47); Hemoglobin 10.1 g/dl (12.0-16.0); Mean Corpuscular HGB Conc 35 g/dl (31-36); Mean Corpuscular Hemoglobin 32 pg (27-31); Mean Corpuscular Volume 94 fL (80-97); Mean Platelet Volume 8 um3 (7.4-10.4); Red Blood Count 3.12 10^6/ul (4.0-5.4); Red Cell Distribution Width 16 % (10.5-15); White Blood Count 3.6 10^3/ul (3.5-10.8)
[2017-03-24 05:38] LABS: Add Diff/Slide Review? Slide Review Added; Comments Flag Yes
[2017-03-24 05:50] LABS: ALT 12 U/L (7-52); Albumin 2.5 g/dL (3.2-5.2); Alkaline Phosphatase 31 U/L (34-104); BUN/Creatinine Ratio 11.3 (8-20); Blood Urea Nitrogen 8 mg/dL (6-24); CO2 Carbon Dioxide 18 mmol/L (22-32); Calcium 7.6 mg/dL (8.6-10.3); EGFR African American 108.7 (>60); EGFR Non-African American 84.6 (>60); Globulin 2.2 g/dL (2-4); Glucose 86 mg/dL (70-100); Magnesium 1.9 mg/dL (1.9-2.7); Sodium 138 mmol/L (133-145); Total Protein 4.7 g/dL (6.4-8.9)
[2017-03-24] MEDS ORDERED: Heparin VIAL(*) 5000 UNITS/ML VIAL (FIVE THOUSAND) SUBCUT SCH (06:00)
[2017-03-24 06:20] LABS: Burr Cells 1+
[2017-03-24 06:25] LABS: Add Path Review? NO
[2017-03-24] MEDS: Docusate CAP* 100 MG PO SCH (07:54)
[2017-03-24] MEDS: metroNIDAZOLE TAB* 250 MG PO SCH ×2 (09:58→13:59)
[2017-03-24] MEDS: Diphenoxylat/Atrop 2.5-0.025M* 1 TAB PO PRN ×2 (11:30→17:27)
[2017-03-24] MEDS: NS 0.9% w/ 20 Meq KCL 1000 ML* 1,000 ML IV SCH ×2 (11:34→21:09)
[2017-03-24] MEDS: Ondansetron INJ* 2 MG/ML VIAL IV PRN (17:23)
[2017-03-25] MEDS: Omeprazole CAP* 20 MG PO SCH (06:00)
[2017-03-25] MEDS: Heparin VIAL(*) 5000 UNITS/ML VIAL (FIVE THOUSAND) SUBCUT SCH ×2 (06:00→15:07)
[2017-03-25] MEDS: NS 0.9% w/ 20 Meq KCL 1000 ML* 1,000 ML IV SCH (06:02)
[2017-03-25] MEDS: Ondansetron INJ* 2 MG/ML VIAL IV PRN (08:36)
[2017-03-25 13:23] VITALS: BP 84/54
[2017-03-25] MEDS: Diphenoxylat/Atrop 2.5-0.025M* 1 TAB PO PRN (15:07)
== END 2017-03-25 15:10 | disposition home or self-care (01) | DRG 254 ==
LOC: ED 18:01 → SSU 03-23 00:49
PROVIDERS: ADMIT Hospitalist; ATTEND Internal Medicine Hematology & Oncology
DX: K52.1 Toxic gastroenteritis and colitis (principal); C34.90 Malignant neoplasm of unspecified part of unspecified bronchus or lung; D70.2 Other drug-induced agranulocytosis; C78.6 Secondary malignant neoplasm of retroperitoneum and peritoneum; C79.00 Secondary malignant neoplasm of unspecified kidney and renal pelvis; C79.72 Secondary malignant neoplasm of left adrenal gland; R65.10 Systemic inflammatory response syndrome (SIRS) of non-infectious origin without acute organ dysfunction; I95.9 Hypotension, unspecified; C79.81 Secondary malignant neoplasm of breast; T45.1X5A Adverse effect of antineoplastic and immunosuppressive drugs, initial encounter; I10 Essential (primary) hypertension; E86.0 Dehydration; Y92.9 Unspecified place or not applicable; X58.XXXA Exposure to other specified factors, initial encounter; Z79.899 Other long term (current) drug therapy; Z88.0 Allergy status to penicillin; Z87.891 Personal history of nicotine dependence; Z82.49 Family history of ischemic heart disease and other diseases of the circulatory system; Z83.49 Family history of other endocrine, nutritional and metabolic diseases; Z84.1 Family history of disorders of kidney and ureter; Z82.5 Family history of asthma and other chronic lower respiratory diseases
CPT/HCPCS: 36415; 71010; 74177; 80048; 80053; 81003; 82270; 82435; 82565; 83605; 83630; 83735; 84132; 84520; 85025; 85610; 85730; 87040; 87045; 87046; 87493; 87899; 99233; A9270-GY; J1644; J2405; J3475; J3490; Q9967

== ENCOUNTER 2018-06-21 05:46 | Day surgery (SDC) | payer BC ==
--- NOTE | 2018-06-18 00:23 | HP ---
CC: Dr. Wolf Cason* HISTORY AND PHYSICAL: DATE OF PLANNED ADMISSION AND SURGERY: 06/21/18 HISTORY OF PRESENT ILLNESS: Ms. Marie is a 58-year-old white female who is admitted with metastatic lung carcinoma, right ureteral obstruction, and right hydronephrosis, for cystoscopy and placement of right ureteral stent. Ms. Marie has metastatic lung carcinoma which was treated with chemotherapy and radiation therapy. She failed treatment and she has evidence of progressive disease. She had a recent CT scan of the abdomen and pelvis which showed enlarging lesions in the mediastinum and the right retroperitoneum causing obstruction of the right ureter and severe right hydronephrosis. The patient has been asymptomatic from her kidney, having no flank pain and no voiding symptoms. I am including a recent history and physical dated 05/28/18, by Dr. Vieira. Her past history is completely negative. No history of any renal diseases or calculi. No history of gross hematuria or urinary tract infections. The patient is presently maintained on thyroid replacement and magnesium replacement. She is on chemotherapy as per Dr. Vieira's note. ALLERGIES: The patient reports being allergic to PENICILLIN. PHYSICAL EXAMINATION GENERAL: A pleasant white female who is rather pale and looks older than her age. VITAL SIGNS: Blood pressure 140/70, pulse of 80. LUNGS: Lungs are clear. HEART: Regular and rhythmic. No murmurs. ABDOMEN: She has no CVA tenderness and the abdominal exam is normal. IMPRESSION: Metastatic lung carcinoma, failing chemotherapy and radiation therapy with progression of her disease and new onset of right hydronephrosis secondary to right ureteral obstruction from retroperitoneal metastatic disease. PLAN: Plan is for cystoscopy and placement of right ureteral stent. I discussed the above plans with the patient and her son. They both understand that the procedure is palliative to help drain her kidney. I discussed the potential complications of the stent including infection, hematuria, and voiding symptoms. They also understand that the stent has to be replaced periodically as needed. [id number]/[facility] #: [id number] MTDD
[~2018-06-21 05:46] MED LIST: Lactated Ringers 1000 ML Bag* 1,000 ML IV SCH
[2018-06-21] MEDS ORDERED: Levofloxacin 500 MG IVPREMIX(* 500 MG/100 ML BAG IVPB ONE (06:05)
[2018-06-21] MEDS ORDERED: Buffered Lidocaine 1% SYRIN* 1 ML/SYRINGE INTRADERM ONE (06:06)
[2018-06-21] MEDS: Buffered Lidocaine 1% SYRIN* 1 ML/SYRINGE INTRADERM ONE ×2 (06:21→06:28)
[2018-06-21] MEDS ORDERED: Iohexol 180 (CONTRAST) 10 ML SDV IV ONE (07:00)
[2018-06-21] MEDS ORDERED: Midazolam* 1 MG/ML 2 ML VIAL (2 MG) ONE (07:30)
[2018-06-21] MEDS ORDERED: fentaNYL* 50 MCG/ML 2 ML VIAL (100 MCG VIAL) ONE (07:30)
[2018-06-21] MEDS ORDERED: Sevoflurane* 1 BTL ONE (07:43)
[2018-06-21] MEDS ORDERED: Lidocaine 2% PF * 5 ML VIAL ONE (08:25)
[2018-06-21] MEDS ORDERED: Ondansetron INJ* 2 MG/ML VIAL ONE (08:25)
[2018-06-21] MEDS ORDERED: Dexamethasone IV* 4 MG/ML 1 ML (4 MG) ONE (08:25)
[2018-06-21] MEDS ORDERED: Propofol* 10 MG/ML 20 ML BTL ONE (08:25)
[2018-06-21] MEDS ORDERED: Acetaminophen TAB* 325 MG PO PRN (08:30)
[2018-06-21] MEDS ORDERED: Ibuprofen TAB* 600 MG PO PRN (08:30)
[2018-06-21] MEDS ORDERED: Naloxone* 0.4 MG/ML 1 ML VIAL IV PRN (08:30)
[2018-06-21] MEDS ORDERED: oxyCODONE/Acetamin 5/325 MG* TAB PO PRN (08:30)
[2018-06-21] MEDS ORDERED: HYDROmorphone INJ1* 1 MG/ML SYRINGE IV PRN (08:30)
[2018-06-21 08:47] VITALS: BP 126/93
--- NOTE | 2018-06-21 10:11 | OP ---
CC: Layo Porter MD * DATE OF OPERATION: 06/21/18 - [facility] DATE OF : 56 SURGEON: Tanner Wagner MD. ANESTHESIOLOGIST: Dr. Luke. ANESTHESIA: General. PRE-OP DIAGNOSES: 1. Metastatic carcinoma of the lung. 2. Right ureteral obstruction and right hydronephrosis due to retroperitoneal mass. POST-OP DIAGNOSES: 1. Metastatic carcinoma of the lung. 2. Right urethral obstruction and right hydronephrosis due to retroperitoneal mass. OPERATIVE PROCEDURE: 1. Cystoscopy. 2. Right retrograde pyelography. 3. Placement of right ureteral stent (black silicon, 8.5 Bahraini, 22 cm long). INDICATION FOR PROCEDURE: Mrs. Marie is a 58-year-old white female who has metastatic lung carcinoma and recently developed right hydronephrosis most likely secondary to metastatic disease in the right retroperitoneum. She has been asymptomatic from her kidney and has not had any significant decrease in the renal function. Because of the progressive and now severe right hydronephrosis the above procedure was advised and accepted. PATHOLOGY AT CYSTOSCOPY: The bladder mucosa looked normal. There were no suspicious bladder lesions seen. Both ureteral orifices looked normal. There was a single ureteral orifice on each site. Right retrograde pyelography showed the obstruction at the level of the proximal ureter with severe right hydronephrosis. DESCRIPTION OF PROCEDURE: After successful general anesthesia, the patient was placed in the lithotomy position and was prepped and draped for a cystoscopy. Cystoscopy was performed. The bladder was inspected and the above findings were noted. A flexible-tip guidewire was then introduced into the right orifice and positioned in the distal ureter. An open-ended catheter was fed on top of the guidewire. A retrograde pyelography was performed demonstrating the whole ureter and demonstrating the level of the obstruction just distal to the ureteropelvic junction. The guidewire was successfully introduced inside the renal pelvis. A 22-cm long , black silicon stent, 8.5 [place]raini was then fed on top of the guidewire and positioned with 1 loop of the stent in the renal pelvis and another loop inside the bladder. There was good drainage of contrast from the kidney. At one point , there was a concern that the patient might have double ureters; however, review of the CT scan and more careful inspection of the right trigone showed one orthotopic ureteral orifice. The bladder was emptied and the scope was removed. The patient tolerated the procedure well and left the operating room in good condition. [id number]/[facility] #: [id number] JESSICA
== END 2018-06-21 09:02 | disposition home or self-care (01) ==
LOC: OR 05:46
PROVIDERS: ATTEND Urology
DX: N13.1 Hydronephrosis with ureteral stricture, not elsewhere classified (principal); C34.90 Malignant neoplasm of unspecified part of unspecified bronchus or lung; C78.6 Secondary malignant neoplasm of retroperitoneum and peritoneum; Z88.0 Allergy status to penicillin; E03.9 Hypothyroidism, unspecified
CPT/HCPCS: 74420; C2617; J1100; J1956; J2250; J2405; J2704; J3010

== ENCOUNTER 2018-07-19 11:15 | Day surgery (SDC) | payer BC ==
[~2018-07-19 11:15] MED LIST changes: +Buffered Lidocaine 1% SYRIN* 1 ML/SYRINGE INTRADERM ONE; +Famotidine IV* 10 MG/ML 2 ML (20 mg) IV ONE
[2018-07-19] MEDS ORDERED: Clindamycin 900 MG IVPREMIX(* 900 MG/50 ML SDV IV ONE (11:21)
[2018-07-19] MEDS ORDERED: Famotidine IV* 10 MG/ML 2 ML (20 mg) ONE (11:22)
[2018-07-19] MEDS ORDERED: fentaNYL* 50 MCG/ML 2 ML VIAL (100 MCG VIAL) ONE (12:24)
[2018-07-19] MEDS ORDERED: Midazolam* 1 MG/ML 5 ML VIAL (5 MG) ONE (12:25)
[2018-07-19] MEDS ORDERED: Lidocaine 1% INJ* 10 MG/ML 30 ML SDV ONE (13:14)
[2018-07-19] MEDS ORDERED: Naloxone* 0.4 MG/ML 1 ML VIAL IV PRN (14:44)
[2018-07-19] MEDS ORDERED: Acetaminophen TAB* 325 MG PO PRN (14:44)
[2018-07-19] MEDS ORDERED: DiMENhydriNATE IV* 50 MG/ML VIAL IV PUSH PRN (14:44)
[2018-07-19] MEDS ORDERED: oxyCODONE TAB* 5 MG TAB PO PRN (14:44)
[2018-07-19] MEDS ORDERED: HYDROmorphone INJ1* 1 MG/ML SYRINGE IV PRN (14:44)
[2018-07-19] MEDS ORDERED: Dexamethasone IV* 4 MG/ML 1 ML (4 MG) ONE (14:47)
[2018-07-19] MEDS ORDERED: Ketorolac INJ* 30 MG/ML 1 ML VIAL ONE (14:47)
[2018-07-19] MEDS ORDERED: Propofol* 10 MG/ML 20 ML BTL ONE (14:47)
[2018-07-19] MEDS ORDERED: Ondansetron INJ* 2 MG/ML VIAL ONE (14:47)
--- NOTE | 2018-07-19 14:59 | BRIEFOPN ---
Brief Operative Note - Surgery Procedures: OPERATIVE REPORT Pre-op: Lung cancer Post-Op: Same Procedure:Insertion of right internal jugular vein 8F PowerPort with Ultrasound Surgeon: MD Jayme Asst: none Anes: MAC with Dr. Marilyn carrasco IVF:min EBL:min Specimen: none Drain: none Wound: 1 To PACU
[2018-07-19 15:19] VITALS: BP 134/84
--- NOTE | 2018-07-19 23:50 | OP ---
CC: Dr. Wolf Vieira * DATE OF OPERATION: 07/19/18 - [facility] DATE OF : 56 SURGEON: Urbano Delacruz MD CERAMIC ARTIST: None. ANESTHESIOLOGIST: Dr. Sanders. ANESTHESIA: Local with monitored anesthesia care. PRE-OP DIAGNOSIS: Lung cancer. POST-OP DIAGNOSIS: Lung cancer. OPERATIVE PROCEDURE: Insertion of an 8-Malawian right internal jugular vein PowerPort. WOUND CLASSIFICATION: I. COMPLICATIONS: None. DRAINS: None. SPECIMENS: None. FINDINGS: I was unable to pass the guidewire from an acces site on the left subclavian vein, thus the catheter was placed in the right internal jugular vein after unsuccessful attempt at aspirating blood from the right subclavian vein. DESCRIPTION OF PROCEDURE: Written informed consent was obtained, the left and right chest were marked, and preoperative antibiotics were administered. The patient was taken to the operating room, placed in the supine position. Sequential compression devices were placed in the lower extremities. Anesthesia was administered. The left and right chest and neck were prepped and draped in the usual sterile fashion. Time-out verification completed. Initially, 1% lidocaine was infiltrated in the left mid infraclavicular area in the chest wall using an 18-gauge Cook needle and passed under the clavicle. On the first pass, I was able to puncture the subclavian vein with good blood return. Multiple attempts were unsuccessful in passing the guidewire into the superior vena cava/right atrium. After multiple attempts of passing the guidewire, only with the initial stick, I made a decision not to proceed with an attempted left IJ stick as the inability to pass the guidewire, was appeared to be more centrally located. The right chest wall was anesthetized with 1% lidocaine and I attempted to stick the right subclavian vein on several passes, but I was unable to withdraw blood. Using the ultrasound machine after anesthetizing the right neck at the bifurcation of the sternocleidomastoid muscle, under the direct vision, the right internal jugular vein was punctured with good blood return. The guidewire was inserted, at this time, under fluoroscopy confirming entry into the right atrium. A transverse incision was then made on the right chest wall with a subcutaneous pocket inferior to this, large enough to fit the port. A catheter was then tunneled using the tunneling device from the pocket site to the puncture site in the neck. Using the sheath peel-away system, the catheter was inserted into the superior vena cava at the junction of the right atrium. The catheter was cut to the appropriate length and attached to the port, which was placed in the pocket. It flushed and withdrew blood well and was flushed with heparin. Port was secured to the subcutaneous tissue and its pocket with 2 separate 2-0 Prolene suture. Hemostasis was assured. The pocket site was closed with running 3-0 Vicryl suture. A 4-0 subcuticular Vicryl sutures were used to close the pocket site as well as the small transverse incision made in the right neck. Sterile dressings were applied. The patient tolerated the procedure well and was taken to the recovery room in stable condition. Post procedural chest x-ray showed both lung fry to be without evidence of pneumothorax. The catheter was in good in position. [id number]/[facility] #: [id number] MTDD
== END 2018-07-19 15:59 | disposition home or self-care (01) ==
LOC: OR 11:15
PROVIDERS: ATTEND Surgery
DX: C34.12 Malignant neoplasm of upper lobe, left bronchus or lung (principal); Z87.891 Personal history of nicotine dependence; Z88.0 Allergy status to penicillin; I10 Essential (primary) hypertension
CPT/HCPCS: 71045; 76000; C1788; J1100; J1642; J1885; J2250; J2405; J2704; J3010

== ENCOUNTER 2018-12-27 07:20 | Day surgery (SDC) | payer BC ==
--- NOTE | 2018-12-22 19:02 | HP ---
CC: Dr. Vieira * HISTORY AND PHYSICAL: DATE OF PLANNED ADMISSION AND PROCEDURE: 12/27/18 HISTORY OF PRESENT ILLNESS: Ms. Marie is a 58-year-old white female who is admitted with right hydronephrosis, status post placement of right ureteral stent for cystoscopy and right ureteral stent exchange. 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 This was diagnosed originally in March 2016 and was treated with chemotherapy. Since that time, there has been progression of her disease and developed metastatic masses involving the breast, the right retroperitoneal and the right kidney with a large mass occupying the lower pole of the right kidney. In June 2018, because of right hydronephrosis secondary to ureteral obstruction from the renal and the retroperitoneal masses, the patient had a cystoscopy and insertion of right ureteral stent. The stent was well tolerated and has done very well with it with almost complete resolution of the hydronephrosis. The patient is now admitted for elective cystoscopy and right ureteral stent exchange. The rest of her history is unchanged. Based on her pre-op urine culture, she was started on Cipro 500 mg b.i.d. on . PAST HISTORY AND SYSTEM REVIEW: Unchanged compared to the previous history. She is still on chemotherapy, followed by Dr. Vieira. She denies any shortness of breath, difficulty breathing. She denies any abdominal or flank pain. The stent has been well tolerated. MEDICATIONS: She is maintained on the chemotherapy, on thyroid replacement and on magnesium replacement. ALLERGIES: The patient is allergic to PENICILLIN, which gives her a rash. PHYSICAL EXAMINATION GENERAL: She is a pleasant white female, who is moderately overweight and has lost all her hair because of the chemotherapy. VITAL SIGNS: Blood pressure 120/80, pulse of 80, oxygen saturation 96%. LUNGS: Clear. HEART: Regular and rhythmic. No murmurs. ABDOMEN: Soft. No CVA tenderness. EXTREMITIES: Negative. IMPRESSION: Metastatic small cell lung carcinoma causing right ureteral obstruction, managed with right ureteral stent drainage. PLAN: Considering the stent has been in place for 6 months, the plan is for elective right ureteral stent exchange. I discussed the above plans with the patient and her , and all their questions were answered. [id number]/[facility] #: [id number] [facility]PITALJanna
[~2018-12-27 07:20] MED LIST changes: +Dexamethasone TAB* 4 MG PO ONE; +Ondansetron ODT TAB* 4 MG PO ONE
[2018-12-27] MEDS ORDERED: Dexamethasone TAB* 4 MG ONE (07:48)
[2018-12-27] MEDS ORDERED: Buffered Lidocaine 1% SYRIN* 1 ML/SYRINGE INTRADERM ONE (07:48)
[2018-12-27] MEDS ORDERED: Ondansetron ODT TAB* 4 MG ONE (07:48)
[2018-12-27] MEDS ORDERED: Levofloxacin 750 MG IVPREMIX(* 750 MG/150 ML BAG ONE (07:48)
[2018-12-27] MEDS ORDERED: Famotidine IV* 10 MG/ML 2 ML (20 mg) ONE (07:49)
[2018-12-27] MEDS ORDERED: Propofol* 10 MG/ML 20 ML BTL ONE (08:54)
[2018-12-27] MEDS ORDERED: Dexamethasone IV* 4 MG/ML 1 ML (4 MG) ONE (08:54)
[2018-12-27] MEDS ORDERED: Ondansetron INJ* 2 MG/ML VIAL ONE (08:54)
[2018-12-27] MEDS ORDERED: fentaNYL* 50 MCG/ML 2 ML VIAL (100 MCG VIAL) ONE (08:54)
[2018-12-27] MEDS ORDERED: Lidocaine 2% PF * 5 ML VIAL ONE (08:54)
[2018-12-27] MEDS ORDERED: Midazolam* 1 MG/ML 5 ML VIAL (5 MG) ONE (08:55)
[2018-12-27] MEDS ORDERED: Iohexol 180 (CONTRAST) 10 ML SDV IV ONE (09:28)
[2018-12-27] MEDS ORDERED: fentaNYL* 50 MCG/ML 2 ML VIAL (100 MCG VIAL) IV PRN (09:30)
[2018-12-27] MEDS ORDERED: DiMENhydriNATE IV* 50 MG/ML VIAL IV PUSH PRN (09:30)
[2018-12-27] MEDS ORDERED: Naloxone* 0.4 MG/ML 1 ML VIAL IV PRN (09:30)
[2018-12-27] MEDS ORDERED: KETAMINE HCL* 50 MG/ML 10 ML VIAL ONE (10:04)
[2018-12-27 11:53] VITALS: BP 126/78
--- NOTE | 2018-12-27 14:33 | OP ---
CC: Dr. Porter * DATE OF OPERATION: 12/27/18 - [facility] DATE OF : 56 SURGEON: Tanner Wagner MD ANESTHESIOLOGIST: Dr. Yañez. ANESTHESIA: IV sedation with MAC. PRE-OP DIAGNOSES: 1. Metastatic carcinoma of the lung. 2. Right ureteral obstruction due to above. 3. Status post placement of right ureteral stent. POST-OP DIAGNOSIS: Right ureteral obstruction. OPERATIVE PROCEDURE: 1. Cystoscopy. 2. Right retrograde pyelography. 3. Right ureteral stent exchange (black silicone, 8.5-Stateless, 24 cm long). INDICATION FOR PROCEDURE: Mrs. Marie is a 58-year-old white female who has metastatic carcinoma of the lung. She has been on chemotherapy. The metastasis has involved the lower pole of the right kidney and the retroperitoneum causing obstruction of the proximal ureter. She has been managed with ureteral stent drainage that was inserted 6 months ago. Because of the duration the stent has been in place, the patient is admitted for elective right ureteral stent exchange. PATHOLOGY: At cystoscopy, the distal limb of the stent was seen coming from the right ureteral orifice. There was the expected edema of the bladder mucosa adjacent to the stent. Upon right retrograde pyelography, there was narrowing of the proximal half of the right ureter due to an extrinsic process representing the retroperitoneal disease as well as the metastasis into the lower pole of the right kidney. There was no hydronephrosis noted. DESCRIPTION OF PROCEDURE: Under intravenous sedation with anesthesia monitoring , the patient was placed in the lithotomy position and was prepped and draped for cystoscopy. Cystoscopy was performed, the bladder was inspected, and the above findings were noted. The distal limb of the stent was pulled out to the level of the urethral meatus. Flexible tip guidewire was then introduced through the lumen of the stent and the stent was removed, keeping the guidewire in place. A size 5- Stateless open-ended catheter was then fed on top of the guidewire and positioned in the mid ureter. Retrograde pyelography was performed demonstrating the obstructed irregular proximal half of the ureter and demonstrating no dilatation of the collecting system. The guidewire was then repositioned in an upper mid pole calyx. A black silicone stent, 24 cm long, 8.5-Stateless was then fed over the guidewire and positioned. The proximal end was in the upper mid pole infundibulum. Because the infundibulum was not dilated, the proximal end did not coil. The distal end coiled inside the bladder. There was good drainage of contrast from the kidney and no extravasation. The patient tolerated the procedure well and left the operating room in good condition. [id number]/[facility] #: [id number] MTDD
== END 2018-12-27 11:55 | disposition home or self-care (01) ==
LOC: OR 07:20
PROVIDERS: ATTEND Urology
DX: N13.5 Crossing vessel and stricture of ureter without hydronephrosis (principal); C34.90 Malignant neoplasm of unspecified part of unspecified bronchus or lung; C78.6 Secondary malignant neoplasm of retroperitoneum and peritoneum; Z87.891 Personal history of nicotine dependence; E03.9 Hypothyroidism, unspecified; D64.9 Anemia, unspecified
CPT/HCPCS: 74420; A9270-GY; C1876; J1100; J2250; J2405; J2704; J3010; J8540

== ENCOUNTER 2019-05-30 15:04 | Observation (INO) | payer BC ==
--- OUTSIDE RECORDS SUMMARY | 2019-05-30 15:40 | XMS REPORT | Continuity of Care Document ---
:1960 External Reference #:[id number] Author Name Chaz Resendiz M.D. Address [address] [place] [address] Care Team Providers Name Role Phone Wild Glover M.D. - Family Medicine Care Team Information Customer Service Consultant Problems Active Problems Provider Date Carcinoma of upper lobe, bronchus or lung Onset: 03/28/2016 Hyperthyroidism Onset: Difficulty sleeping Onset: Social History Type Date Description Comments Sex Unknown ETOH Use Rarely consumes alcohol Tobacco Use Start: Unknown End: Patient is a former smoker Recreational Drug Use Denies Drug Use Smoking Status Reviewed: 04/28/19 Patient is a former smoker Allergies, Adverse Reactions, Alerts Active Allergies Reaction Severity Comments Date Penicillin Hives Severe 04/28/2019 Medications Active Medications SIG Qnty Indications Ordering Provider Date Omeprazole Take 1 Capsule By Unknown 20mg Capsules Mouth Once Daily DR Dexamethasone Take 3 Tablets By Unknown 2mg Tablets Mouth Twice Daily Lorazepam Take 1 Or 2 Unknown 1mg Tablets Tablets By Mouth as Needed For Anxiety Prior To Radiation Therapy. Donot Exceed 2 Per 24 Hours Levothyroxine Sodium Take 1 & 1 2 (One Unknown & One Half) 25mcg Tablets Tablets By Mouth Once Daily Immunizations Description No Information Available Vital Signs Description No Information Available Results Description No Information Available Procedures Description No Information Available Medical Devices Description No Information Available Encounters Description No Information Available Assessments Date Code Description Provider 04/28/2019 H25.13 Age-related nuclear cataract, bilateral Chaz Resendiz M.D. 04/28/2019 C34.10 Malignant neoplasm of upper lobe, Chaz Resendiz M.D. unspecified bronchus or lung Plan of Treatment 04/28/2019 - Chaz Resendiz M.D.H25.13 Age-related nuclear cataract, bilateralComments:Smoking can increase the risk of developing or worsening any eye related disease, as well as affect your overall health. If you are a smoker , we strongly recommend that you quit.If you are not a smoker, we strongly recommend that you do not start. You have been diagnosed with cataracts. If you are happy with your vision as it is now, then we will see you at your next scheduled appointment. If you feel like your vision is getting worse before your scheduled appointment, please call Lesa at [phone].Follow up:6 Month Follow Up DFE You can expect to have your eyes dilated at your next visit. If Dr. Resendiz orders any additional testing, it may require extra time. We recommend that you bring sunglasses, as dilation drops often make you light sensitive until they wear off. We always recommend you bring someone to drive you home if you are uncomfortable driving with your eyes dilated. If you have any questions before your next visit, feel free to call our office at .C34.10 Malignant neoplasm of upper lobe, unspecified bronchus or lung Functional Status Description No Information Available Mental Status Description No Information Available Referrals Description No Information Available
--- OUTSIDE RECORDS SUMMARY | 2019-05-30 15:40 | XMS REPORT | Continuity of Care Document ---
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 [employer] Installations Problems Description No Information Available Social History Type Date Description Comments Sex Unknown Tobacco Use Start: Unknown End: Former Cigarette Smoker Unknown Smoking Status Reviewed: 04/14/19 Former Cigarette Smoker ETOH Use Occasionally consumes alcohol Tobacco Use Start: Unknown End: Patient is a former smoker Unknown Recreational Drug Use Denies Drug Use Exercise Type/Frequency Does not exercise Allergies, Adverse Reactions, Alerts Active Allergies Reaction Severity Comments Date Penicillin hives 03/22/2018 Medications Active Medications SIG Qnty Indications Ordering Date Provider Proair HFA 1 puff every 6 8.500gm R06.02 Fela Bee, 11/22/2018 108(90Base) hours as needed mcg/Act Aerosol Levothyroxine Sodium 1.5 tablets 45tabs E03.9 Joe Blackburn MD 03/22/2018 25mcg (37.5mcg) by Tablets mouth every day Magnesium 1 tablet by Unknown 400mg Tablets mouth once a day Prochlorperazine Maleate 1 by mouth Unknown 10mg every 8 hours Tablets as needed nausea Omeprazole 1 by mouth Unknown 20mg Capsules DR every day Tylenol 1 by mouth Unknown 325mg Tablets every 6 hours as needed pain Melatonin ER take 1 tab Unknown 10mg Tablets ER nightly as needed for sleep. Immunizations Description No Information Available Vital Signs Date Vital Result Comment 04/14/2019 8:12am Height 65 inches 5'5" Weight 170.00 lb w/ shoes Heart Rate 77 /min BP Systolic Sitting 108 mmHg BP Diastolic Sitting 76 mmHg BMI (Body Mass Index) 28.3 kg/m2 11/22/2018 11:26am Height 65 inches 5'5" Weight 159.00 lb Heart Rate 90 /min BP Systolic Sitting 138 mmHg BP Diastolic Sitting 70 mmHg O2 % BldC Oximetry 96 % BMI (Body Mass Index) 26.5 kg/m2 Results Test Acquired Date Facility Test Result H/L Range Note Laboratory test 11/12/2018 [facility] Free T4 0.97 ng/dL Normal 0.61-1.[address] ([place] [address] Thyroxine [phone] ) TSH (Thyroid Stim Horm) 2.46 mcIU/mL Normal 0.34-5.60 Procedures Date Code Description Status 11/04/2018 16973 Diffusing Capacity Completed 11/04/2018 47325 Plethysmography Determination Lung Volumes & Per Airway Completed Resist 11/04/2018 40205 Pulmonary Function><Bronchodil Completed Medical Devices Description No Information Available Encounters Type Date Location Provider Dx Diagnosis Office Visit 11/22/2018 [facility] Bee, R06.02 Shortness of 11:[facility]a [facility] [employer] R49.0 Dysphonia C34.12 Malignant neoplasm of upper lobe, left bronchus or lung Office Visit 11/02/2018 7:00a [facility] R06.02 Shortness of [facility] [employer] Z87.891 Personal history of nicotine dependence C34.12 Malignant neoplasm of upper lobe, left bronchus or lung 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, unilateral Assessments Date Code Description Provider 04/14/2019 E03.9 Hypothyroidism, unspecified Joe Blackburn MD 04/14/2019 R53.83 Other fatigue Joe Blackburn MD 04/14/2019 C34.12 Malignant neoplasm of upper lobe, left bronchus Joe Blackburn MD or lung 11/22/2018 R06.02 Shortness of breath Fela Bee MD 11/22/2018 R49.0 Dysphonia Fela Bee MD 11/22/2018 C34.12 Malignant neoplasm of upper lobe, left bronchus Fela Bee MD or lung 11/04/2018 C34.12 Malignant neoplasm of upper lobe, left bronchus Fela Bee MD or lung 11/02/2018 R06.02 Shortness of breath Fela Bee MD 11/02/2018 Z87.891 Personal history of nicotine dependence Fela Bee MD 11/02/2018 C34.12 Malignant neoplasm of upper lobe, left bronchus Fela Bee MD or lung 11/02/2018 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 Blood tests today. 2. We will contact you by phone if a change in levothyroxine dose is needed. 3. Keep your appointment with Dr. Vieira. 4. Return in 6 months for a follow-up visit.R53.83 Other syeoufmC95.12 Malignant neoplasm of upper lobe, left bronchus or lung Functional Status Description No Information Available Mental Status Description No Information Available Referrals Refer to Dr Reason for Referral Status Appt Date Elkin Eldridge MD Sent [address] [place] [address] [phone]
--- NOTE | 2019-05-30 16:50 | ED ---
Complex/Multi-Sys Presentation - HPI Summary HPI Summary: 59 year old F presenting [facility] accompanied by family complains of worsening weakness for weeks, hematuria, and SOB. Patient reports she was so weak she couldn't get out of her chair for a day and that she was given abx for a UTI because the doctor she saw couldn't get a urine sample. She has constant pain on her side where a stent was placed as well. She had a tumor in the lung pushing on an artery causing SOB before. The patient rates the pain 3/10 in severity. Symptoms aggravated by nothing. Symptoms alleviated by nothing. - History Of Current Complaint Chief Complaint: EDWeakness Time Seen by Provider: 05/30/19 16:34 Hx Obtained From: Patient Onset/Duration: Lasting Weeks, Still Present Timing: Constant Severity Currently: Mild Aggravating Factor(s): nothing Alleviating Factor(s): nothing Associated Signs And Symptoms: Positive: Weakness, SOB, Other - hematuria - Allergies/Home Medications Allergies/Adverse Reactions: Allergies Allergy/AdvReac Type Severity Reaction Status Date / Time Penicillins Allergy Intermediate Rash Verified 02/08/19 15:28 Home Medications: Home Medications Acetaminophen TAB* [Tylenol TAB*] 325 mg PO Q6H PRN 05/30/19 [History Confirmed 05/30/19] Albuterol inh POWDER (NF) [Proair Respiclick] 2 puff INH Q6HR PRN 05/30/19 [ History Confirmed 05/30/19] Cephalexin CAP* [Keflex CAP*] 500 mg PO TID 05/30/19 [History Confirmed 05/30/19 ] Dexamethasone TAB* [Decadron TAB*] 6 mg PO BID 05/30/19 [History Confirmed 05/30] Levothyroxine TAB* [Synthroid TAB*] 37.5 mcg PO DAILY 05/30/19 [History Confirmed 05/30/19] Omeprazole CAP (NF) [Prilosec CAP* 20 MG] 20 mg PO DAILY 05/30/19 [History Confirmed 05/30/19] Sodium Fluoride/Potassium Nit [Prevident 5000 Sensitive] 1 pst PO BID 05/30/19 [ History Confirmed 05/30/19] PMH/Surg Hx/FS Hx/Imm Hx Endocrine/Hematology History: Reports: Hx Thyroid Disease - Hypothyroid Denies: Hx Diabetes, Hx Anemia Cardiovascular History: Reports: Hx Hypertension - History of, no meds currently Denies: Hx Aneurysm, Hx Angina, Hx Angioplasty, Hx Auto Implanted Cardiovert Defib, Hx Cardiac Arrest, Hx Cardiomegaly, Hx Congenital Heart Disease, Hx Congestive Heart Failure, Hx Coronary Artery Disease, Hx Deep Vein Thrombosis, Hx Embolism, Hx Pacemaker/ICD, Other Cardiovascular Problems/Disorders Respiratory History: Reports: Hx Lung Cancer, Other Respiratory Problems/ Disorders - Raspy voice and difficulty talking after tube in throat with other surgery Denies: Hx Asthma, Hx Chronic Bronchitis, Hx Chronic Obstructive Pulmonary Disease (COPD), Hx Pneumonia, Hx Pulmonary Edema, Hx Pulmonary Embolism, Hx Seasonal Allergies, Hx Sleep Apnea GI History: Reports: Hx Gastroesophageal Reflux Disease - onmeprazole, Other GI Disorders - Retroperitoneal mass Denies: Hx Gall Bladder Disease, Hx Gastrointestinal Bleed, Hx Hiatal Hernia , Hx Ulcer History: Reports: Hx Kidney Stones, Other Problems/Disorders - Blockage in right kidney-retroperitoneal mass-stent placed 06/21/18 Denies: Hx Dialysis, Hx Kidney Infection, Hx Renal Disease Musculoskeletal History: Denies: Hx Arthritis, Hx Back Problems, Hx Bursitis, Hx Congenital Bone Abnormalities, Hx Fibromyalgia, Hx Gout, Hx Orthopedic Injury, Hx Osteoporosis, Hx Scoliosis, Hx Tendonitis, Other Musculoskeletal History Sensory History: Reports: Hx Contacts or Glasses - Glasses Denies: Hx Eye Injury, Hx Eye Prosthesis, Hx Glaucoma, Hx Legally Blind, Hx Macular Degeneration, Hx Vision Problem, Hx Deafness, Hx Hearing Aid, Hx Hearing Problem Opthamlomology History: Reports: Hx Contacts or Glasses - Glasses Denies: Hx Eye Injury, Hx Eye Prosthesis, Hx Glaucoma, Hx Legally Blind, Hx Macular Degeneration, Hx Vision Problem Neurological History: Reports: Hx Nerve Disease - numbness and tingling in fingers, states from chemo Denies: Hx Dementia, Hx Developmental Delay, Hx Migraine, Hx Seizures, Hx Spinal Cord Injury, Other Neuro Impairments/Disorders Psychiatric History: Reports: Hx Anxiety - claustrophobic, Hx Panic Disorder Denies: Hx Attention Deficit Hyperactivity Disorder, Hx Eating Disorder, Hx Depression, Hx Post Traumatic Stress Disorder, Hx Inpatient Treatment, Hx Community Mental Health Tx, Hx Schizophrenia, Hx Bipolar Disorder, Hx Suicide Attempt, Hx of Violent Episodes Against Others, Hx Substance Abuse - Cancer History Cancer Type, Location and Year: 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 HYSTERECTOMY. WISDOM TEETH EXTRACTION. RIGHT URETERAL STENT- 06/29 [facility]. POWERPORT PLACEMENT Hx Anesthesia Reactions: No Infectious Disease History: No Infectious Disease History: Denies: Hx Hepatitis, Hx Tuberculosis, Traveled Outside the [place] in Last 30 Days - Family History Known Family History: Positive: Hypertension - Social History Alcohol Use: None Alcohol Amount: 1-3 DRINKS/MONTH Substance Use Type: Reports: None Smoking Status (MU): Former Smoker Type: Cigarettes Amount Used/How Often: 3 PPD FOR MANY YEARS Have You Smoked in the Last Year: No Review of Systems Positive: Shortness Of Breath Positive: hematuria Positive: Weakness All Other Systems Reviewed And Are Negative: Yes Physical Exam - Summary Physical Exam Summary: Appearance: The patient is well-nourished in no acute distress and in no acute pain. Skin: The skin is warm and dry, and skin color reflects adequate perfusion. HEENT: The head is normocephalic and atraumatic. The pupils are equal and reactive. The conjunctivae are clear and without drainage. Nares are patent and without drainage. Mouth reveals moist mucous membranes, and the throat is without erythema and exudate. The external ears are intact. The ear canals are patent and without drainage. The tympanic membranes are intact. Neck: The neck is supple with full range of motion and non-tender. There are no carotid bruits. There is no neck vein distension. Respiratory: Crackles in the right lung about one third of the way up. Cardiovascular: Heart is regular rate and rhythm. There is no murmur or rub auscultated. There is no peripheral edema and pulses are symmetrical and equal. Abdomen: The abdomen is soft and non-tender. There are normal bowel sounds heard in all four quadrants and there is no organomegaly palpated. Musculoskeletal: There is no back tenderness noted. Extremities are non-tender with full range of motion. There is good capillary refill. There is no peripheral edema or calf tenderness elicited. Neurological: Patient is alert and oriented to person, place and time. The patient has symmetrical motor strength in all four extremities. Cranial nerves are grossly intact. Deep tendon reflexes are symmetrical and equal in all four extremities. Psychiatric: The patient has an appropriate affect and does not exhibit any anxiety or depression. Triage Information Reviewed: Yes Vital Signs On Initial Exam: Initial Vitals Temp Pulse Resp BP Pulse Ox 99.2 F 116 19 149/95 96 05/30/19 15:05 05/30/19 15:05 05/30/19 15:05 05/30/19 15:05 05/30/19 15:05 Vital Signs Reviewed: Yes Procedures - Sedation Patient Received Moderate/Deep Sedation with Procedure: No Diagnostics - Vital Signs Vital Signs Temp Pulse Resp BP Pulse Ox 05/30/19 15:05 99.2 F 116 19 149/95 96 - Laboratory Result Diagrams: 05/31/19 06:27 05/31/19 06:27 Lab Statement: Any lab studies that have been ordered have been reviewed, and results considered in the medical decision making process. - Radiology CXR Radiology Interpretation Completed By: ED Physician Summary of Radiographic Findings: Impression: no acute process. This CXR was interpreted and reviewed by . Pending official report. - EKG 1712 Cardiac Rate: Tachycardia EKG Rhythm: Sinus Rhythm Summary of EKG Findings: An EKG at 1712 reveals sinus rhythm and PVCs at 107 bpm. has reviewed and interpreted this EKG. Complex Multi-Symp Course/Dx Course Of Treatment: Frank Trujillo came in today because of extreme weakness but she has been C/O SOB for several. She has a mildly elevated troponin and an equivocal CXR and I. am concerned that she may have a PE. Her GFR is borderline and I asked the hospitalist to admit and hydrate her for a CTA. - Diagnoses Provider Diagnoses: Pulmonary embolism - Physician Notifications Discussed Care Of Patient With: Natasha Zhu - admit Time Discussed With Above Provider: 19:00 Instructed by Provider To: Admit As Inpatient Discharge ED - Sign-Out/Discharge Documenting (check all that apply): Patient Departure - admit - Discharge Plan Condition: Stable Disposition: ADMITTED TO [facility] - Billing Disposition and Condition Condition: STABLE Disposition: Admitted to [facility] - Attestation Statements Document Initiated by Scribe: Yes Documenting Scribe: Johnie Horvath Provider For Whom Scribe is Documenting (Include Credential): Destin Florian MD Scribe Attestation: IJohnie, scribed for Destin Florian MD on 05/31/19 at 1308. Scribe Documentation Reviewed: Yes Provider Attestation: The documentation as recorded by the scribe, Johnie Horvath accurately reflects the service I personally performed and the decisions made by me, Destin Florian MD Status of Scribe Document: Viewed
[2019-05-30 17:37] LABS: ABS Basophils 0.1 10^3/ul (0-0.2); ABS Lymphocytes 0.3 10^3/ul (1.0-4.8); ABS Monocytes 0.6 10^3/ul (0-0.8); ABS Neutrophils 9.4 10^3/ul (1.5-7.7); ABS Nucleated RBC 0.4 10^3/ul; Albumin 3.5 g/dL (3.2-5.2); Anion Gap 9 mmol/L (2-11); CO2 Carbon Dioxide 26 mmol/L (22-32); Calcium 8.4 mg/dL (8.6-10.3); Chloride 100 mmol/L (101-111); Hematocrit 34 % (35-47); Hemoglobin 11.4 g/dL (12.0-16.0); Mean Corpuscular HGB Conc 34 g/dL (31-36); Mean Corpuscular Hemoglobin 33 pg (27-31); Mean Corpuscular Volume 99 fL (80-97); Mean Platelet Volume 8.8 fL (7.4-10.4); Nucleated Red Blood Cells % 3.4; Platelet Count 32 10^3/uL (150-450); Potassium 3.6 mmol/L (3.5-5.0); Red Blood Count 3.41 10^6 /uL (3.70-4.87); Red Cell Distribution Width 20 % (10-15); Sodium 135 mmol/L (135-145); White Blood Count 10.4 10^3/uL (3.5-10.8)
[2019-05-30 17:43] LABS: ALT 18 U/L (7-52); AST 17 U/L (13-39); Albumin/Globulin Ratio 1.3 (1-3); Alkaline Phosphatase 63 U/L (34-104); BUN/Creatinine Ratio 23.8 (8-20); Blood Urea Nitrogen 31 mg/dL (6-24); C Reactive Protein 230.78 mg/L (<8.01); EGFR African American 50.4 (>60); EGFR Non-African American 41.6 (>60); Globulin 2.8 g/dL (2-4); Glucose 129 mg/dL (70-100); Total Protein 6.3 g/dL (6.4-8.9)
[2019-05-30 17:45] LABS: Urine Appearance Cloudy; Urine Bacteria Absent (Absent); Urine Bilirubin Negative (Negative); Urine Blood 3+ (Negative); Urine Color Amber; Urine Glucose Negative (Negative); Urine Ketones Negative (Negative); Urine Nitrite Negative (Negative); Urine Protein 2+(100 mg/dL) (Negative); Urine Red Blood Cell 3+(>10/hpf) (Absent); Urine Specific Gravity 1.016 (1.010-1.030); Urine Urobilinogen Negative (Negative)
[2019-05-30 17:47] LABS: Troponin I 0.15 ng/mL (<0.03)
[2019-05-30 17:51] LABS: Urine Squamous Epithelial Cell Present (Absent)
[2019-05-30 17:52] LABS: Urine White Blood Cell 1+(6-10/hpf) (Absent)
[2019-05-30 18:25] LABS: Polychromasia 1+
[2019-05-30] MEDS ORDERED: NS 0.9% 1000 ML** 1,000 ML IV ONE (18:54)
[2019-05-30] MEDS ORDERED: Ondansetron INJ* 2 MG/ML VIAL IV PRN (20:19)
[2019-05-30] MEDS ORDERED: Benzonatate CAP* 100 MG PO PRN (20:19)
[2019-05-30] MEDS ORDERED: Acetaminophen TAB* 325 MG PO PRN (20:19)
[2019-05-30] MEDS ORDERED: Albuterol HFA INHALER* 8 gm MDI INH PRN (20:24)
[2019-05-30] MEDS ORDERED: Melatonin 3 MG TAB PO PRN (20:24)
[2019-05-30] MEDS ORDERED: NS 0.9% 1000 ML** 1,000 ML IV SCH (20:30)
[2019-05-30] MEDS ORDERED: Iodixanol* (CONTRAST) 320 MG/ML 100 ML SDV IV ONE (20:47)
[2019-05-30] MEDS ORDERED: Dexamethasone TAB* 1 MG PO SCH (21:00)
[2019-05-30] MEDS ORDERED: cefTRIAXone(*) 1 GM in NS 0.9% 50 ML* 50 ML IVPB SCH (21:00)
[2019-05-30] MEDS ORDERED: DOXYcycline IV* 100 MG in NS 0.9% 250 ML* 250 ML IVPB SCH (21:00)
[2019-05-30 22:03] LABS: Influenza A Molecular Negative (Negative); Influenza B Molecular Negative (Negative)
[2019-05-30] MEDS ORDERED: cefTRIAXone(*) 1 GM ADVAN/BAG ONE (22:21)
[2019-05-30] MEDS: Dexamethasone TAB* 1 MG PO SCH (22:39)
[2019-05-31] MEDS: guaiFENesin ER TAB 600 MG PO SCH ×3 (00:05→21:39)
[2019-05-31] MEDS: DOXYcycline IV* 100 MG in NS 0.9% 250 ML* 250 ML IVPB SCH ×3 (00:06→22:55)
[2019-05-31 06:45] LABS: Anion Gap 8 mmol/L (2-11); CO2 Carbon Dioxide 24 mmol/L (22-32); Calcium 7.9 mg/dL (8.6-10.3); Chloride 105 mmol/L (101-111); Magnesium 1.9 mg/dL (1.9-2.7); Potassium 3.7 mmol/L (3.5-5.0); Sodium 137 mmol/L (135-145)
[2019-05-31 06:46] LABS: ABS Basophils 0.1 10^3/ul (0-0.2); ABS Lymphocytes 0.5 10^3/ul (1.0-4.8); ABS Monocytes 0.5 10^3/ul (0-0.8); ABS Neutrophils 7.6 10^3/ul (1.5-7.7); ABS Nucleated RBC 0.2 10^3/ul; Eosinophil % 0.1 %; Hematocrit 29 % (35-47); Hemoglobin 9.7 g/dL (12.0-16.0); Lymphocyte % 5.4 %; Mean Corpuscular HGB Conc 34 g/dL (31-36); Mean Corpuscular Hemoglobin 33 pg (27-31); Mean Corpuscular Volume 99 fL (80-97); Mean Platelet Volume 8.8 fL (7.4-10.4); Nucleated Red Blood Cells % 2.3; Platelet Count 31 10^3/uL (150-450); Red Blood Count 2.92 10^6 /uL (3.70-4.87); Red Cell Distribution Width 19 % (10-15); White Blood Count 8.6 10^3/uL (3.5-10.8)
[2019-05-31 06:51] LABS: BUN/Creatinine Ratio 24.8 (8-20); Blood Urea Nitrogen 28 mg/dL (6-24); EGFR African American 59.2 (>60); Glucose 92 mg/dL (70-100)
[2019-05-31] MEDS: Pantoprazole TAB * 40 MG TAB PO SCH (07:54)
[2019-05-31] MEDS: Levothyroxine TAB* 25 MCG TAB PO SCH (07:54)
[2019-05-31] MEDS ORDERED: Dexamethasone TAB* 6 MG PO SCH (09:00)
[2019-05-31] MEDS: DEXAMETHASONE 1.5 MG PO SCH (09:16)
--- NOTE | 2019-05-31 09:34 | PN ---
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 She was seen in the office on 05/27/19 with additional c/ o hematuria and was started on abx. with question of infectious cystis in setting of thrombocytopenia. Patricia presented yesterday afternoon with progressive SOB and concern from family for new cyanosis with any exertion. A CT in the ER was obtained revealing progressive disease in both the left lung, mediastinum, and right renal mass. She was started on empiracl antibiotics for presumed post- obstructive pneumonia and tells me she feels a lot better today. She still gets winded with exertion but is not as bad and not SOB at rest. Bloody urine continues. She would like to go home. Medications: Acetaminophen (Tylenol Tab*) 650 mg PO Q6H PRN PRN Reason: MILD PAIN or TEMP > 100.4 Albuterol (Ventolin Hfa Inhaler*) 2 puff INH Q6HR PRN PRN Reason: SHORTNESS OF BREATH Benzonatate (Tessalon Cap*) 100 mg PO BID PRN PRN Reason: COUGH Dexamethasone (Decadron Tab*) 1 mg PO QPM [facility] Last Admin: 05/30/19 22:39 Dose: Not Given Dexamethasone (Decadron Tab*) 3 mg PO DAILY [facility] Last Admin: 05/31/19 09:16 Dose: 3 mg Guaifenesin (Mucinex*) 1,200 mg PO BID [facility] Last Admin: 05/31/19 07:54 Dose: 1,200 mg Ceftriaxone Sodium 1 gm/ (Sodium Chloride) 50 mls @ 200 mls/hr IVPB BEDTIME RONN Doxycycline Hyclate 100 mg/ (Sodium Chloride) 250 mls @ 250 mls/hr IVPB 1100, 2300 [facility] Last Admin: 05/31/19 00:06 Dose: 250 mls/hr Levothyroxine Sodium (Synthroid Tab*) 37.5 mcg PO DAILY@0600 [facility] Last Admin: 05/31/19 07:54 Dose: 37.5 mcg Lorazepam (Ativan Tab(*)) 1 mg PO BID PRN PRN Reason: ANXIETY Melatonin (Melatonin) 3 mg PO BEDTIME PRN PRN Reason: INSOMNIA Last Admin: 05/31/19 00:06 Dose: 3 mg Ondansetron HCl (Zofran Inj*) 4 mg IV Q6H PRN PRN Reason: NAUSEA Pantoprazole Sodium (Protonix Tab*) 40 mg PO DAILY [facility] Last Admin: 05/31/19 07:54 Dose: 40 mg Objective: [] Vital Signs Temp Pulse Resp BP Pulse Ox 98.6 F 72 18 129/69 97 05/31/19 07:15 05/31/19 07:15 05/31/19 07:31 05/31/19 07:15 05/31/19 07:15 A&Ox3, EOMI, neuro grossly non-focal HRR, S1S2 LS clear +BS Cushingoid appearance Laboratory Results - last 24 hr 05/30/19 05/30/19 05/30/19 16:57 16:57 16:57 WBC 10.4 RBC 3.41 L Hgb 11.4 L Hct 34 L MCV 99 H MCH 33 H MCHC 34 RDW 20 H Plt Count 32 L MPV 8.8 Neut % (Auto) 90.7 Lymph % (Auto) 3.0 [place] % (Auto) 5.6 Eos % (Auto) 0.0 Baso % (Auto) 0.7 Absolute Neuts (auto) 9.4 H Absolute Lymphs (auto) 0.3 L Absolute Monos (auto) 0.6 Absolute Eos (auto) 0.0 Absolute Basos (auto) 0.1 Absolute Nucleated RBC 0.4 Immature Gran % 8.0 Neutrophils % 87.0 Band Neutrophils % 8.0 Lymphocytes % 3.0 Monocytes % 2.0 Nucleated RBC % 3.4 Nucleated RBCs/100 WBC 4.0 H Normal RBC Morphology Not Reportable Polychromasia 1+ Anisocytosis 2+ Macrocytosis 1+ Target Cells 1+ [place] Bodies Present Sodium 135 Potassium 3.6 Chloride 100 L Carbon Dioxide 26 Anion Gap 9 BUN 31 H Creatinine 1.30 H Est GFR ( Amer) 50.4 Est GFR (Non-Af Amer) 41.6 BUN/Creatinine Ratio 23.8 H Glucose 129 H Lactic Acid 1.8 Calcium 8.4 L Magnesium Total Bilirubin 0.50 AST 17 ALT 18 Alkaline Phosphatase 63 Troponin I 0.15 H* C-Reactive Protein 230.78 H Total Protein 6.3 L Albumin 3.5 Globulin 2.8 Albumin/Globulin Ratio 1.3 Urine Color Urine Appearance Urine pH Ur Specific Eldred Urine Protein Urine Ketones Urine Blood Urine Nitrate Urine Bilirubin Urine Urobilinogen Ur Leukocyte Esterase Urine WBC (Auto) Urine RBC (Auto) Ur Squamous Epith Cells Urine Bacteria Urine Yeast Urine Glucose Influenza A (Rapid) Influenza B (Rapid) 05/30/19 05/30/19 05/31/19 17:27 21:35 06:27 WBC 8.6 RBC 2.92 L Hgb 9.7 L Hct 29 L MCV 99 H MCH 33 H MCHC 34 RDW 19 H Plt Count 31 L MPV 8.8 Neut % (Auto) 88.4 Lymph % (Auto) 5.4 [place] % (Auto) 5.4 Eos % (Auto) 0.1 Baso % (Auto) 0.7 Absolute Neuts (auto) 7.6 Absolute Lymphs (auto) 0.5 L Absolute Monos (auto) 0.5 Absolute Eos (auto) 0.0 Absolute Basos (auto) 0.1 Absolute Nucleated RBC 0.2 Immature Gran % Neutrophils % Band Neutrophils % Lymphocytes % Monocytes % Nucleated RBC % 2.3 Nucleated RBCs/100 WBC Normal RBC Morphology Polychromasia Anisocytosis Macrocytosis Target Cells [place] Bodies Sodium Potassium Chloride Carbon Dioxide Anion Gap BUN Creatinine Est GFR ( Amer) Est GFR (Non-Af Amer) BUN/Creatinine Ratio Glucose Lactic Acid Calcium Magnesium Total Bilirubin AST ALT Alkaline Phosphatase Troponin I C-Reactive Protein Total Protein Albumin Globulin Albumin/Globulin Ratio Urine Color Sona Urine Appearance Cloudy Urine pH 6.0 Ur Specific [place] 1.016 Urine Protein 2+(100 mg/dl) A Urine Ketones Negative Urine Blood 3+ A Urine Nitrate Negative Urine Bilirubin Negative Urine Urobilinogen Negative Ur Leukocyte Esterase Negative Urine WBC (Auto) 1+(6-10/hpf) A Urine RBC (Auto) 3+(>10/hpf) A Ur Squamous Epith Cells Present A Urine Bacteria Absent Urine Yeast Absent Urine Glucose Negative Influenza A (Rapid) Negative Influenza B (Rapid) Negative 05/31/19 06:27 WBC RBC Hgb Hct MCV MCH MCHC RDW Plt Count MPV Neut % (Auto) Lymph % (Auto) [place] % (Auto) Eos % (Auto) Baso % (Auto) Absolute Neuts (auto) Absolute Lymphs (auto) Absolute Monos (auto) Absolute Eos (auto) Absolute Basos (auto) Absolute Nucleated RBC Immature Gran % Neutrophils % Band Neutrophils % Lymphocytes % Monocytes % Nucleated RBC % Nucleated RBCs/100 WBC Normal RBC Morphology Polychromasia Anisocytosis Macrocytosis Target Cells [place] Bodies Sodium 137 Potassium 3.7 Chloride 105 Carbon Dioxide 24 Anion Gap 8 BUN 28 H Creatinine 1.13 H Est GFR ( Amer) 59.2 Est GFR (Non-Af Amer) 49.0 BUN/Creatinine Ratio 24.8 H Glucose 92 Lactic Acid Calcium 7.9 L Magnesium 1.9 Total Bilirubin AST ALT Alkaline Phosphatase Troponin I C-Reactive Protein Total Protein Albumin Globulin Albumin/Globulin Ratio Urine Color Urine Appearance Urine pH Ur Specific [place] Urine Protein Urine Ketones Urine Blood Urine Nitrate Urine Bilirubin Urine Urobilinogen Ur Leukocyte Esterase Urine WBC (Auto) Urine RBC (Auto) Ur Squamous Epith Cells Urine Bacteria Urine Yeast Urine Glucose Influenza A (Rapid) Influenza B (Rapid) Assessment: []59 yo female with extensive stage SCLC including CORONER TRANSPORT TECHNICIAN mets. At this time we have not been able to pursue further systemic therapy due to her persistent thrombocytopenia (with no evidence for bone marrow infiltration on bone marrow earlier this month) and she is set up for palliative RT (sim planned for today) . She has progressed on 5th line therapy and any further therapies likely have <20% chance of prolonged response. Mrs. Marie was admitted with increased SOB, fortunately, she has improved slightly with antibiotics and I would recommend we complete a full course for post-obstructive PNA. Her imaging does show potential invasion into the left main bronchus which may indicate a need for stenting, however I am concerned that any further delay in radiation would limit any palliative benefit. In regards to her hematuria this appears to be directly related to the progressive right renal mass, it unfortunately is unlikely to have significant response to radiation (in terms of stopping hemorrhage) and I am concerned this progression and persistent bleeding may limit her prognosis more significantly than her respiratory issues. Plan: []- [facility] consult with Dr. Nielson - Agree with IV antibiotics, step down to PO doxycycline on d/c should be adequate - Check O2 requirements for d/c - Follow daily counts, consider transfusion for hmg <8.5 with thrombocytopenia and active bleeding, consider plt. for <20K with known bleeding - Recommend palliative consult, code status and consideration for hospice post RT Dispo: recommend cont.'d inpt. monitoring, would not d/c until stable for next 24 hours
[2019-05-31] MEDS: LORazepam TAB(*) 1 MG PO PRN (11:27)
--- NOTE | 2019-05-31 12:20 | PN ---
Subjective Date of Service: 05/31/19 Interval History: Patient is feeling quite a bit better today. Patient is able to walk to the bathroom and back without SOB. Patient denies F/C, ongoing cough, CP, dizziness , palpitations, or other pain. Patient has persistent and unchanged hematuria. Family History: Unchanged from Admission Social History: Unchanged from Admission Past Medical History: Unchanged from Admission Objective Active Medications: Acetaminophen (Tylenol Tab*) 650 mg PO Q6H PRN PRN Reason: MILD PAIN or TEMP > 100.4 Albuterol (Ventolin Hfa Inhaler*) 2 puff INH Q6HR PRN PRN Reason: SHORTNESS OF BREATH Benzonatate (Tessalon Cap*) 100 mg PO BID PRN PRN Reason: COUGH Dexamethasone (Decadron Tab*) 1 mg PO QPM [facility] Last Admin: 05/30/19 22:39 Dose: Not Given Dexamethasone (Decadron Tab*) 3 mg PO DAILY [facility] Last Admin: 05/31/19 09:16 Dose: 3 mg Guaifenesin (Mucinex*) 1,200 mg PO BID [facility] Last Admin: 05/31/19 07:54 Dose: 1,200 mg Ceftriaxone Sodium 1 gm/ (Sodium Chloride) 50 mls @ 200 mls/hr IVPB BEDTIME [facility]ON[facility] Doxycycline Hyclate 100 mg/ (Sodium Chloride) 250 mls @ 250 mls/hr IVPB 1100, 2300 [facility] Last Admin: 05/31/19 11:28 Dose: 250 mls/hr Levothyroxine Sodium (Synthroid Tab*) 37.5 mcg PO DAILY@0600 [facility] Last Admin: 05/31/19 07:54 Dose: 37.5 mcg Lorazepam (Ativan Tab(*)) 1 mg PO BID PRN PRN Reason: ANXIETY Last Admin: 05/31/19 11:27 Dose: 1 mg Melatonin (Melatonin) 3 mg PO BEDTIME PRN PRN Reason: INSOMNIA Last Admin: 05/31/19 00:06 Dose: 3 mg Ondansetron HCl (Zofran Inj*) 4 mg IV Q6H PRN PRN Reason: NAUSEA Pantoprazole Sodium (Protonix Tab*) 40 mg PO DAILY [facility] Last Admin: 05/31/19 07:54 Dose: 40 mg Vital Signs - 8 hr 05/31/19 05/31/19 05/31/19 07:15 07:31 11:27 Temperature 98.6 F Pulse Rate 72 Respiratory 18 18 18 Rate Blood Pressure 129/69 (mmHg) O2 Sat by Pulse 97 Oximetry Oxygen Devices in Use Now: None Appearance: Patient is a 59yo female who appears older than stated age and is sitting in the bed in NAD. Eyes: No Scleral Icterus, PERRLA Ears/Nose/Mouth/Throat: NL Teeth, Lips, Gums, Clear Oropharnyx, Mucous Membranes Moist Neck: NL Appearance and Movements; NL JVP, Trachea Midline Respiratory: Symmetrical Chest Expansion and Respiratory Effort, - Cardiovascular: NL Sounds; No Murmurs; No JVD, RRR, No Edema Abdominal: NL Sounds; No Tenderness; No Distention, No Hepatosplenomegaly Lymphatic: No Cervical Adenopathy Extremities: No Edema, No Clubbing, Cyanosis Skin: No Rash or Ulcers, No Nodules or Sclerosis Neurological: Alert and Oriented x 3, NL Sensation, NL Muscle Strength and Tone , - - CN II-XII intact. Result Diagrams: 05/31/19 06:27 05/31/19 06:27 Microbiology and Other Data: Microbiology 05/31/19 00:50 Legionella Urinary Antigen - Final Urine Negative Legionella Antigen Streptococcus pneumoniae Ag Screen - Final Negative S. 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 Patient also has hematuria with likely bleeding from known renal mass. - Patient Problems (1) Pneumonia Current Visit: Yes Status: Acute Code(s): J18.9 - PNEUMONIA, UNSPECIFIED ORGANISM SNOMED Code(s): 250616761 Comment: - Equivocal Pneumonia, likely post-obstructive - Improving on Ceftriaxone and Doxycycline - Continue full course. (2) Hematuria Current Visit: Yes Status: Acute Code(s): R31.9 - HEMATURIA, UNSPECIFIED SNOMED Code(s): 33158587 Comment: - Large amount, concern for renal mass bleeding - May benefit from radiation to the right kidney - NM Renal function performed, defer full interpretation and pros/cons to radiation oncology. (3) CKD (chronic kidney disease) Current Visit: Yes Status: Acute Code(s): N18.9 - CHRONIC KIDNEY DISEASE, UNSPECIFIED SNOMED Code(s): 849612053 Comment: - Stable at around 1.1 - GFR 36.6 based on NM scan. (4) Small cell lung cancer Current Visit: No Status: Acute Code(s): C34.90 - MALIGNANT NEOPLASM OF UNSP PART OF UNSP BRONCHUS OR LUNG SNOMED Code(s): 654134904 Comment: - With Widespread metastasis to brain, mediastinum, breast, and kidney. - Palliative radiation to the mediastinum. - Poor prognosis, palliative care consult. (5) Full code status Current Visit: Yes Status: Acute Code(s): Z78.9 - OTHER SPECIFIED HEALTH STATUS SNOMED Code(s): 872328182 (6) DVT prophylaxis Current Visit: Yes Status: Acute Code(s): Z29.9 - ENCOUNTER FOR PROPHYLACTIC MEASURES, UNSPECIFIED SNOMED Code(s): 750846172 Status and Disposition: Observation for at least 1 more day IV antibiotics.
[2019-05-31] MEDS: Dexamethasone TAB* 1 MG PO SCH (17:03)
[2019-05-31] MEDS ORDERED: cefTRIAXone(*) 1 GM in NS 0.9% 50 ML* 50 ML IVPB SCH (21:00)
--- NOTE | 2019-06-01 01:02 | RADMED ---
RADIATION ONCOLOGY INPATIENT CONSULTATION NOTE: DATE OF SERVICE: 05/31/19 - ROOM #412 DIAGNOSIS: Metastatic small cell lung cancer. PERFORMANCE STATUS: ECOG stage III. HISTORY OF PRESENT ILLNESS: Patricia Marie is a 59-year-old woman with history of small cell lung cancer over the past two and a half years. She has received extensive systemic therapy as well as thoracic radiation therapy and palliative radiation treatment including recent whole brain radiation therapy retreatment. She was admitted with shortness of breath with progressive left hilar mass as well as bleeding from right renal mass and thrombocytopenia, and Radiation Oncology consultation is placed. Medical history is well known to me and detailed in the patient's chart and reviewed. I discussed with the patient and her family degree of situation and consideration of palliative care versus additional palliative radiation therapy. Differential renal scan indicates a meaningful contribution to her renal function from the right kidney, which likely should preclude use of radiation therapy for bleeding for fear of contributing to worsening renal function. I do think she is a candidate for palliative and radiation therapy at the left hilum of the lung whether is progressive mass causing airway compromise as well as vascular compromise of pulmonary artery, which may well be contributing to her shortness of breath. I reviewed the logistics and rationale for palliative thoracic radiation therapy for her situation including risks, benefits, and alternatives as well as the acute and long-term frequent and uncommon toxicities. I am concerned about toxicity close to the end of life and she is hesitant to proceed with particular concern for esophagitis, which was a substantial side effect from prior treatments, even though the magnitude might be less. I did answer the patient and her family questions to the best of my ability. She is going to consider her options further. If she does elect to proceed with thoracic radiation therapy, I recommend 2000 cGy at 400 cGy per fraction with plan to initiate therapy expediently. Thank you for giving me the opportunity to participate in the care of this very pleasant patient. [id number]/[facility] #: [id number] [facility]
[2019-06-01] MEDS: Levothyroxine TAB* 25 MCG TAB PO SCH (06:54)
[2019-06-01 07:20] LABS: ABS Basophils 0.1 10^3/ul (0-0.2); ABS Lymphocytes 0.4 10^3/ul (1.0-4.8); ABS Monocytes 0.5 10^3/ul (0-0.8); ABS Neutrophils 7.5 10^3/ul (1.5-7.7); ABS Nucleated RBC 0.2 10^3/ul; Hematocrit 27 % (35-47); Hemoglobin 9.2 g/dL (12.0-16.0); Lymphocyte % 4.2 %; Mean Corpuscular HGB Conc 33 g/dL (31-36); Mean Corpuscular Hemoglobin 33 pg (27-31); Mean Corpuscular Volume 99 fL (80-97); Nucleated Red Blood Cells % 2.1; Platelet Count 34 10^3/uL (150-450); Red Blood Count 2.79 10^6 /uL (3.70-4.87); Red Cell Distribution Width 19 % (10-15); White Blood Count 8.5 10^3/uL (3.5-10.8)
[2019-06-01] MEDS: DOXYcycline IV* 100 MG in NS 0.9% 250 ML* 250 ML IVPB SCH (11:28)
[2019-06-01] MEDS: guaiFENesin ER TAB 600 MG PO SCH (11:33)
[2019-06-01] MEDS: Pantoprazole TAB * 40 MG TAB PO SCH (11:33)
--- NOTE | 2019-06-01 11:41 | HP ---
CC: Dr. Glover; Dr. Wolf Vieira. * HISTORY AND PHYSICAL: DATE OF ADMISSION: 05/30/19 PRIMARY CARE DOCTOR: Dr. Glover MY ATTENDING WHILE IN THE HOSPITAL: Dr. Wilbur Macedo.* (DICTATED BY YOLANDA HACKETT) OUTPATIENT ONCOLOGIST: Dr. Wolf Vieira. CHIEF COMPLAINT: Malaise, hematuria. HISTORY OF PRESENT ILLNESS: Ms. Marie is a 59-year-old female with past medical history significant for widespread small cell lung cancer with metastasis to the brain, breast, mediastinum, and kidneys who in the last 2 weeks has noticed has not been feeling well. She has been having increasing swelling in her legs, some increasing dyspnea on exertion, chronic, but these are somewhat chronic findings for her and have gotten worse. The patient does not have any chest pain. The patient has not felt dizzy on standing. The patient denies fevers or chills. The patient has had somewhat increase in cough. The patient on the day before admission began to have gross hematuria, which is a new finding for her. She has only had this previously after urologic procedures or stenting her ureters and this has passed quickly. The patient recently has been evaluated for thrombocytopenia, and had bone marrow biopsy, which attributed this to bone marrow suppression from her chemotherapy after a bone marrow biopsy. The patient has not had any recent weight loss or weight gain that she knows of. The patient has had a normal appetite. The patient has not had any long immobilizations, long car rides, plane trips or anything like that. The patient is not currently on radiation or chemotherapy for her cancer, but does have had a very good response to whole brain radiation for her brain metastasis. In the emergency department, the patient's started to have an elevated troponin, gross hematuria, and we are asked to evaluate the patient for admission to the hospital for evaluation of these findings. PAST MEDICAL HISTORY: Small cell lung cancer with metastasis to brain, breast, mediastinum, chronic kidney disease, history of hypertension on no home medications, history of ureteral obstruction status post stenting. PAST SURGICAL HISTORY: The patient has a past surgical history of ureteral stenting. HOME MEDICATIONS: 1. Melatonin 3 mg p.o. at bedtime as needed. 2. Lorazepam 1 mg p.o. b.i.d. as needed. 3. Dexamethasone 1 mg in the morning, 3 mg at night. 4. Albuterol inhaler 1 puff inhalation q. 6 hours as needed. 5. Metoprolol 10 mg p.o. daily. 6. Synthroid 37.5 mg p.o. daily. 7. Tylenol 325 mg p.o. q.6 hours as needed. ALLERGIES: PENICILLINS. FAMILY HISTORY: The patient's mother has hypertension, hyperlipidemia. The patient's father at 56, ESRD. The patient has sister with COPD. All her siblings are healthy. SOCIAL HISTORY: The patient has a long history of smoking. The patient has quit over 2 years. The patient does not use alcohol or use illicit drugs. The patient lives at home with her very involved family. REVIEW OF SYSTEMS: A 10-point review of systems was reviewed and is negative except as above in HPI. PHYSICAL EXAMINATION GENERAL: The patient is a 59-year-old alopecic female looks older than staged age, sitting comfortably in bed, in no acute distress. VITAL SIGNS: At time of evaluation, temperature 97.6, pulse 92, respiratory rate 24, oxygen saturation 96% on room air, blood pressure 160/90. HEENT: Head: Normocephalic, atraumatic. Sclerae anicteric. No conjunctival injection. Nasal mucosa moist. Oral mucosa moist. No pharyngeal erythema, discharge, or exudate. NECK: Supple, nontender. No lymphadenopathy. No carotid bruit auscultated. No JVD. RESPIRATORY: Clear to auscultation bilaterally. No wheezes, rales, or rhonchi. Good air exchange bilaterally. HEART: Regular rate and rhythm. No clicks, murmurs, gallops, or rubs. Pulses are 2+ in the dorsalis pedis, posterior tibialis, and radial areas. ABDOMEN: Soft, nontender, nondistended. Bowel sounds present and normoactive in all 4 quadrants. No hepatosplenomegaly. No abdominal bruits auscultated. No hepatojugular reflux. GENITOURINARY: No suprapubic or CVA tenderness. SKIN: Clean, dry, and intact. No rash. NEUROLOGIC: Cranial nerves II through XII intact. No focal deficits. Alert and oriented x3. PSYCHIATRIC: Pleasant and cooperative. DIAGNOSTIC STUDIES/LAB DATA: White blood cell count 7.4, hemoglobin 11.4, platelet count 132. Sodium 136, potassium 3.6, chloride 100, carbon dioxide 26 , anion gap 9, BUN 31, creatinine 1.3, glucose 129, lactic acid 1.8, calcium 8.4. Bilirubin 0.5, AST 17, ALT 18, alkaline phosphatase 63. Troponin I 0.15. CRP 230.78. Protein 6.3, albumin 3.5, globulin 2.8. Urine shows 3+ blood, 2+ protein. Influenza A and B is negative. Studies: Chest x-ray read as left upper lobe airspace opacification re- demonstrated, mediastinal masses seen better in comparison CT. Electrocardiogram is unremarkable. ASSESSMENT AND PLAN: Ms. Marie is a 59-year-old female with past medical history of small cell lung cancer, widespread metastasis of the brain, mediastinum, breast and kidneys who presented to the emergency with malaise, shortness of breath on exertion and increased cough and hematuria. The patient admitted to the hospital for further evaluation of these findings. 1. Shortness of breath on exertion, malaise. The patient is unclear what the cause of this is. The patient will be started on Maalox for community acquired pneumonia given that she is high risk for postobstruction pneumonia with her large tumor breaking through her lung cancer and history of pneumonia. The patient will be on ceftriaxone and doxycycline as pulmonary toileting. The patient also at very high risk for pulmonary embolism, is not on an anticoagulation given her platelet level. The patient will have a CTA of the chest to further characterize a possible pneumonia and to check for a pulmonary embolism. This will be a difficult diagnostic if pulmonary embolus is found given the patient's platelet count. The patient has lower extremity edema. The patient will not be diuresed at this time unless pulmonary edema is demonstrated on the chest CT. 2. Hematuria. The patient's hematuria is worrisome for progression of the patient's renal mass. A CT with contrast of the abdomen and pelvis will also be obtained. A urology consultation after this will be considered if there is need for repeat stenting, cystoscopy, or other possible procedure to help with the bleeding. 3. Hypertension. The patient is currently normotensive, we will not treat with antihypertensive. 4. Chronic kidney disease. The patient's creatinine slightly above baseline and she will be given fluids, given the IV contrast should be given. 5. DVT prophylaxis. SCDs in the setting of gross hematuria and thrombocytopenia. 6. FEN. The patient will have regular unrestricted diet and fluids on 2 L. 7. Disposition. The patient is admitted to observation in the hospital. TIME SPENT: Approximately 60 minutes spent on admission of this patient, 35 of which was spent [id number] with the patient obtaining history and physical and discussing treatment plan. This plan was discussed with my attending, Dr. Wilbur Macedo, and he is in agreement. YOLANAD HACKETT [id number]/[facility] #: [id number] JESSICA
--- NOTE | 2019-06-01 11:43 | CONSULT ---
Palliative / Hospice Consult Ordering Provider: Najma Frias - PCPMatilda Referal Reason: Goals of care/no bowel meds/no narcotics - Subjective Code Status: Full Code Advance Directives Location: No Advance Directives - History or Present Illness History or Present Illness: 59yo female with metastatic SCLC to brain, breast, kidney and mediastinum presents with SOB. PMH is significant for HTN not on meds. PSHx ex tob user, no drugs, occ etoh, lives with . Studies ekg-SV complexes,CXR-BRANDI airspace opacification, known mediastinal mass, chest/abd CTA-no PE, L superhilar mass, T7 wedge compression fx, irreg L breast mass no change, L adrenal mass, R renal mass, pericaval adenopathy with increasing compression of IVC, lateral mass near R kidney and R gonadal thrombus no change, renal scan-decrease renal function with GFR 36.6, H/H 9.7/29, plt 31, BUN/Cr 28/1.13, egfr 49, alb 3.5 and CRP 230.78. Pt admitted with post obstuctive pneumonia, hematuria, CKD and metastatic SCLC . All history is from pt, family and medical records. Lab Values: Abnormal Lab Results 06/01/19 06:50 WBC 8.5 RBC 2.79 L Hgb 9.2 L Hct 27 L MCV 99 H MCH 33 H MCHC 33 RDW 19 H Plt Count 34 L MPV 9.0 Neut % (Auto) 88.9 Lymph % (Auto) 4.2 [place] % (Auto) 6.3 Eos % (Auto) 0.0 Baso % (Auto) 0.6 Absolute Neuts (auto) 7.5 Absolute Lymphs (auto) 0.4 L Absolute Monos (auto) 0.5 Absolute Eos (auto) 0.0 Absolute Basos (auto) 0.1 Absolute Nucleated RBC 0.2 Nucleated RBC % 2.1 Laboratory Last Values WBC 8.5 10^3/uL (3.5-10.8) 06/01/19 06:50 RBC 2.79 10^6 /uL (3.70-4.87) L 06/01/19 06:50 Hgb 9.2 g/dL (12.0-16.0) L 06/01/19 06:50 Hct 27 % (35-47) L 06/01/19 06:50 MCV 99 fL (80-97) H 06/01/19 06:50 MCH 33 pg (27-31) H 06/01/19 06:50 MCHC 33 g/dL (31-36) 06/01/19 06:50 RDW 19 % (10-15) H 06/01/19 06:50 Plt Count 34 10^3/uL (150-450) L 06/01/19 06:50 MPV 9.0 fL (7.4-10.4) 06/01/19 06:50 Neut % (Auto) 88.9 % 06/01/19 06:50 Lymph % (Auto) 4.2 % 06/01/19 06:50 [place] % (Auto) 6.3 % 06/01/19 06:50 Eos % (Auto) 0.0 % 06/01/19 06:50 Baso % (Auto) 0.6 % 06/01/19 06:50 Absolute Neuts (auto) 7.5 10^3/ul (1.5-7.7) 06/01/19 06:50 Absolute Lymphs (auto) 0.4 10^3/ul (1.0-4.8) L 06/01/19 06:50 Absolute Monos (auto) 0.5 10^3/ul (0-0.8) 06/01/19 06:50 Absolute Eos (auto) 0.0 10^3/ul (0-0.6) 06/01/19 06:50 Absolute Basos (auto) 0.1 10^3/ul (0-0.2) 06/01/19 06:50 Absolute Nucleated RBC 0.2 10^3/ul 06/01/19 06:50 Immature Gran % 8.0 % (0-9) 05/30/19 16:57 Neutrophils % 87.0 % 05/30/19 16:57 Band Neutrophils % 8.0 % (0-8) 05/30/19 16:57 Lymphocytes % 3.0 % 05/30/19 16:57 Monocytes % 2.0 % 05/30/19 16:57 Nucleated RBC % 2.1 06/01/19 06:50 Nucleated RBCs/100 WBC 4.0 (0-0) H 05/30/19 16:57 Normal RBC Morphology Not Reportable 05/30/19 16:57 Polychromasia 1+ 05/30/19 16:57 Anisocytosis 2+ 05/30/19 16:57 Macrocytosis 1+ 05/30/19 16:57 Target Cells 1+ 05/30/19 16:57 [place] Bodies Present 05/30/19 16:57 Sodium 137 mmol/L (135-145) 05/31/19 06:27 Potassium 3.7 mmol/L (3.5-5.0) 05/31/19 06:27 Chloride 105 mmol/L (101-111) 05/31/19 06:27 Carbon Dioxide 24 mmol/L (22-32) 05/31/19 06:27 Anion Gap 8 mmol/L (2-11) 05/31/19 06:27 BUN 28 mg/dL (6-24) H 05/31/19 06:27 Creatinine 1.13 mg/dL (0.51-0.95) H 05/31/19 06:27 Est GFR ( Amer) 59.2 (>60) 05/31/19 06:27 Est GFR (Non-Af Amer) 49.0 (>60) 05/31/19 06:27 BUN/Creatinine Ratio 24.8 (8-20) H 05/31/19 06:27 Glucose 92 mg/dL (70-100) 05/31/19 06:27 Lactic Acid 1.8 mmol/L (0.5-2.0) 05/30/19 16:57 Calcium 7.9 mg/dL (8.6-10.3) L 05/31/19 06:27 Magnesium 1.9 mg/dL (1.9-2.7) 05/31/19 06:27 Total Bilirubin 0.50 mg/dL (0.2-1.0) 05/30/19 16:57 AST 17 U/L (13-39) 05/30/19 16:57 ALT 18 U/L (7-52) 05/30/19 16:57 Alkaline Phosphatase 63 U/L (34-104) 05/30/19 16:57 Troponin I 0.15 ng/mL (<0.03) H* 05/30/19 16:57 C-Reactive Protein 230.78 mg/L (<8.01) H 05/30/19 16:57 Total Protein 6.3 g/dL (6.4-8.9) L 05/30/19 16:57 Albumin 3.5 g/dL (3.2-5.2) 05/30/19 16:57 Globulin 2.8 g/dL (2-4) 05/30/19 16:57 Albumin/Globulin Ratio 1.3 (1-3) 05/30/19 16:57 Urine Color [place] 05/30/19 17: Urine Appearance Cloudy 05/30/19 17:27 Urine pH 6.0 (5-9) 05/30/19 17:27 Ur Specific [place] 1.016 (1.010-1.030) 05/30/19 17:27 Urine Protein 2+(100 mg/dl) (Negative) A 05/30/19 17:27 Urine Ketones Negative (Negative) 05/30/19 17: Urine Blood 3+ (Negative) A 05/30/19 17:27 Urine Nitrate Negative (Negative) 05/30/19 17: Urine Bilirubin Negative (Negative) 05/30/19 17:27 Urine Urobilinogen Negative (Negative) 05/30/19 17:27 Ur Leukocyte Esterase Negative (Negative) 05/30/19 17:27 Urine WBC (Auto) 1+(6-10/hpf) (Absent) A 05/30/19 17:27 Urine RBC (Auto) 3+(>10/hpf) (Absent) A 05/30/19 17:27 Ur Squamous Epith Cells Present (Absent) A 05/30/19 17:27 Urine Bacteria Absent (Absent) 05/30/19 17: Urine Yeast Absent (Absent) 05/30/19 17:27 Urine Glucose Negative (Negative) 05/30/19 17:27 Influenza A (Rapid) Negative (Negative) 05/30/19 21:35 Influenza B (Rapid) Negative (Negative) 05/30/19 21:35 - Objective Active Medications: Acetaminophen (Tylenol Tab*) 650 mg PO Q6H PRN PRN Reason: MILD PAIN or TEMP > 100.4 Albuterol (Ventolin Hfa Inhaler*) 2 puff INH Q6HR PRN PRN Reason: SHORTNESS OF BREATH Benzonatate (Tessalon Cap*) 100 mg PO BID PRN PRN Reason: COUGH Dexamethasone (Decadron Tab*) 1 mg PO QPM [facility] Last Admin: 05/31/19 17:03 Dose: 1 mg Dexamethasone (Decadron Tab*) 3 mg PO DAILY [facility] Guaifenesin (Mucinex*) 1,200 mg PO BID [facility] Last Admin: 05/31/19 21:39 Dose: 1,200 mg Ceftriaxone Sodium 1 gm/ (Sodium Chloride) 50 mls @ 200 mls/hr IVPB BEDTIME [facility] Last Admin: 05/31/19 21:13 Dose: 200 mls/hr Doxycycline Hyclate 100 mg/ (Sodium Chloride) 250 mls @ 250 mls/hr IVPB 1100, 2300 [facility] Last Admin: 05/31/19 22:55 Dose: 250 mls/hr Levothyroxine Sodium (Synthroid Tab*) 37.5 mcg PO DAILY@0600 [facility] Last Admin: 06/01/19 06:54 Dose: 37.5 mcg Lorazepam (Ativan Tab(*)) 1 mg PO BID PRN PRN Reason: ANXIETY Last Admin: 05/31/19 11:27 Dose: 1 mg Melatonin (Melatonin) 3 mg PO BEDTIME PRN PRN Reason: INSOMNIA Last Admin: 05/31/19 00:06 Dose: 3 mg Ondansetron HCl (Zofran Inj*) 4 mg IV Q6H PRN PRN Reason: NAUSEA Pantoprazole Sodium (Protonix Tab*) 40 mg PO DAILY [facility] Last Admin: 05/31/19 07:54 Dose: 40 mg Vital Signs: Vital Signs: Temp Pulse Resp BP Pulse Ox 97.6 F 85 16 150/88 100 06/01/19 03:27 06/01/19 03:27 06/01/19 03:27 06/01/19 03:27 06/01/19 03:27 Patient Weight: Weight 93.44 kg Intake and Output: Intake & Output 05/30/19 05/31/19 06/01/19 06/02/19 06:59 06:59 06:59 06:59 Intake Total 1265 1540 100 Output Total 800 1550 675 Balance 164 -10 -537 Weight 93.44 kg 93.44 kg Intake: IV Fluids 1000 580 ABX - CEFTRIAXONE 50 Doxy 250 NS (0.9%) 30 IVPB 265 Oral 0 960 100 Output: Urine 800 1550 675 Other: Estimated Void Medium # Bowel Movements 0 # Voids 2 3 ADLs: Meal Record Start: 05/30/19 22: 59 Freq: DAILY@0900,1400,1800 Status: Active Protocol: Created 05/30/19 22:59 System (Rec: 05/30/19 22:59 System MED-C12) Document 05/31/19 09:00 [id number] (Rec: 05/31/19 10:29 [id number] MED-C09) Document 05/31/19 13:58 [id number] (Rec: 05/31/19 14:11 [id number] MED-C09) Document 05/31/19 18:00 [id number] (Rec: 05/31/19 22:08 [id number] MED-C07) Document 06/01/19 09:00 [id number] (Rec: 06/01/19 10:59 [id number] MED-C11) Intake and Output Start: 05/30/19 15: 09 Freq: Status: Active Protocol: Created 05/30/19 15:09 System (Rec: 05/30/19 15:09 System ED-C24) Intake and Output Start: 05/30/19 22: 59 Freq: DAILY@0600,1400,2200 Status: Active Protocol: Created 05/30/19 22:59 System (Rec: 05/30/19 22:59 System MED-C12) Document 05/31/19 05:54 [id number] (Rec: 05/31/19 05:55 [id number] MED-C07) Document 05/31/19 14:00 [id number] (Rec: 05/31/19 14:13 [id number] MED-C09) Document 05/31/19 22:00 [id number] (Rec: 05/31/19 22:11 [id number] MED-C07) Document 06/01/19 00:45 [id number] (Rec: 06/01/19 00:45 [id number] MED-C14) Document 06/01/19 05:10 [id number] (Rec: 06/01/19 05:11 [id number] MED-C02) Document 06/01/19 11:02 [id number] (Rec: 06/01/19 11:03 [id number] MED-C11) Eyes: No Scleral Icterus, PERRLA Ears/Nose/Mouth/Throat: NL Teeth, Lips, Gums, Clear Oropharnyx, Mucous Membranes Moist Neck: NL Appearance and Movements; NL JVP, Trachea Midline Cardiovascular: NL Sounds; No Murmurs; No JVD, RRR, No Edema Abdominal: NL Sounds; No Tenderness; No Distention, No Hepatosplenomegaly Extremities: No Edema, No Clubbing, Cyanosis Neurological: Alert and Oriented x 3, NL Sensation, NL Muscle Strength and Tone , - - CN II-XII intact. - Assessment Assessment: 59yo female with stage 4 metastatic SCLC interested in pursuing palliative radiation - Plan Consult Plan (MU): Palliative Plan: Long discussion with pt, her and sister about goals of care. Pt describes herself as a fighter and has tolerated her chemo well. Family seems to understand prognosis and disease process outlined by oncologist. They know she can't have more chemo or be part of clinical trials because of her platelet count. Hospice information/brochure given to pt. Family is interested in getting a hospital bed, commode and walker. Relayed that information to case management. Pt is planning to be discharged today and realizes bed will be delivered later in the week. Explained bed would be covered under hospice but there may be a charge with their insurance since she doesn't want hospice yet. Family seemed interested in hospice but pt was not, feeling like it was like giving up. Will send referral for out patient palliative care. Pt is eligible for hospice with a diagnosis of metastatic SCLC. KPS 60%, PPS 60%. - Time On Unit Date of Evaluation: 06/01/19 Hospice Consult Time in: 10:45 Hospice Consult Time Out: 11:45 Hospice Consult Time Total: 60 > 50% of Time Spend In Counseling or Coordinating Care: Yes
[2019-06-01] MEDS: LORazepam TAB(*) 1 MG PO PRN (11:47)
[2019-06-01] MEDS: DEXAMETHASONE 1.5 MG PO SCH (11:55)
[2019-06-01] MEDS ORDERED: Dexamethasone TAB* 1 MG PO SCH (12:00)
[2019-06-01 16:13] LABS: Troponin I 0.14 ng/mL (<0.03)
[2019-06-01 16:21] VITALS: BP 141/82
--- NOTE | 2019-06-01 23:00 | DS ---
CC: Dr. Vieira.* DISCHARGE SUMMARY: DATE OF ADMISSION: 05/30/19. DATE OF DISCHARGE: 06/01/19. ATTENDING PHYSICIAN WHILE IN THE HOSPITAL: Dr. Natasha Zhu * (dictated by YOLANDA Carcamo). OUTPATIENT ONCOLOGIST: Dr. Vieira. PRIMARY DIAGNOSES: 1. Post-obstructive pneumonia. 2. Hematuria secondary to small cell lung cancer, metastasis to right kidney. 3. New finding of left renal mass, likely additional small cell lung cancer metastasis. SECONDARY DIAGNOSES: 1. 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 2. Chronic kidney disease. 3. Hypertension. 4. History of ureteral obstruction status post stenting followed by Dr. Wagner. 5. Thrombocytopenia, etiology is unclear at this time with bone marrow biopsy which was not revealing of metastasis to bone. 6. Hypothyroidism. 7. Gastroesophageal reflux disease. PERTINENT STUDIES WHILE IN THE HOSPITAL: CTA of the chest. Impression: 1. Left suprahilar mass with extension into the aortic or pulmonary window of the mediastinum. There is encasement of bronchi and pulmonary artery branches with luminal narrowing of the left lower lube pulmonary artery and luminal irregularity of the other branches and luminal irregularity of the left main stem bronchus and encasement of the left upper lobe bronchi. The mass is increased in size since 05/03/19. 2. No interval pulmonary embolism is identified. 3. Wedge compression of T7 which is similar to prior study. 4. Irregular lateral right breast mass is similar to previous study. 5. Left adrenal mass, which is increased in size since 05/03/19 consistent with metastasis. 6. Right renal mass involving the renal hilum encasing a double J right ureteral stent which is increased in size since the prior study. There is increased hydronephrosis in the upper pole of the right kidney. 7. Pericaval adenopathy, which is increased with increased compression of IVC. 8. Irregular nodule lateral to the upper pole of the right kidney, which is increased since the prior study. 9. Right gonadal vein non-occluding thrombus, which is similar to the prior study. Chest x-ray. Impression: Left upper lobe airspace opacification re- demonstrated. The known mediastinal mass is better characterized by comparison CT. A 05/31/19, nuclear medicine renal scan. Impression: Decreased renal function with a total GFR of 36.6 mL per min. Pertinent lab values: Platelets of 31 on day of discharge. Troponin 0.15 which down trended to 0.14. Urine culture without growth. HISTORY OF PRESENT ILLNESS/HOSPITAL COURSE: Ms. Marie is a 59-year-old white female with a past medical history significant for small cell lung cancer with metastasis to the brain, breast, mediastinum and right kidney, hypertension and history of renal obstruction status post stenting, who presented to the emergency department due to hematuria and malaise. The patient was additionally complaining of increasing dyspnea on exertion as well as increased cough. The patient had a chest x-ray, which was concerning for pneumonia and especially considering her tumor burden, this is most likely a post- obstructive pneumonia. She was started empirically on ceftriaxone and doxycycline and she was not hypoxic and she was also afebrile during the entire hospitalization. This patient was followed by the Hematology-Oncology Service while she was in the hospital and Dr. Nielson, the radiation oncology physician was consulted and did offer palliative radiation therapy for her lung and hilar tumor burden. He noted that she will be a poor candidate for palliative radiation therapy to her kidney and prior to her discharge, she was seen in the radiation oncology department for planning the thoracic radiation therapy. Regarding her hematuria, she was noted to have H and H drop during her hospitalization, however, she maintained her hemoglobin over 7. Her thrombocytopenia remained in the 30s and Hematology-Oncology recommended no transfusions until her platelets are less than 20 and this hematuria is secondary to her renal metastasis. The patient was initially seen in consultation by Dr. Nataly Montalvo of Palliative Medicine. At this time, the patient is still seeking aggressive medical therapy, but was interested in having hospital bed delivered to her home. This was set up by case management. Dr. Vieira felt the patient was safe for discharge from hematological and oncological standpoint today and the patient was eager for discharge. Her shortness of breath felt improved but she still does have some shortness of breath with exertion but feels more like her baseline over the last several months. Denies chest pain, neck pain, jaw pain, or arm pain, fever, chills and does still have ongoing marii blood in her urine without clots. Of note, the patient had an elevated troponin at admission. I suspect this is due to some ischemic demand in the setting of her postobstructive pneumonia and it did down trend and there were no ischemic findings. She and I did discuss an outpatient stress test could be an option, however, I would not freed to do this given her current clinical course. PHYSICAL EXAM ON DAY OF DISCHARGE: General: Obese white female, lying upright in hospital bed, appearing comfortable, in no acute distress. HEENT: PERRLA, sclera anicteric. Lungs: Faint rhonchi in the right base otherwise clear to auscultation. Cardio: Regular rate and rhythm without murmurs, rubs or gallops. Abdomen: Soft, nontender and nondistended. Extremities: No clubbing , cyanosis or edema. Neuro: The patient is alert and oriented x3. DISCHARGE PLAN: Discharge instructions: The patient is to follow up with Dr. Vieira in 1 week. At the same time, she will have repeat blood counts. She is advised to please return to emergency department if she experience any chest pain, difficulty breathing, dizziness, lightheadedness, loss of consciousness, or no urine output for over 8 hours, or fever or chills. The patient was instructed to maintain her scheduled outpatient followup appointment with Dr. Wagner next month regarding her stent followup. As previously mentioned, this patient had an elevated troponin which I believe is secondary to ischemic demand and she may benefit from stress test, however, considering likely poor prognosis of her cancer, the benefit of this may be limited and should be discussed as an outpatient. Diet: Regular unrestricted diet. Activity: The patient may return to normal activities as tolerated. DISCHARGE MEDICATIONS: New medications: 1. Doxycycline 100 mg p.o. b.i.d. x10 days. 2. Mucinex 1200 mg p.o. b.i.d. Continued home medications: 1. Tylenol 325 mg p.o. q.6 hours p.r.n. pain. 2. Synthroid 375 mcg p.o. daily. 3. Omeprazole 20 mg p.o. daily. 4. PreviDent paste p.o. b.i.d. 5. Albuterol 2 puffs inhaled q.6 hours p.r.n. shortness of breath/wheezing. 6. Melatonin 3 mg p.o. at bedtime p.r.n. insomnia. 7. Ativan 1 mg p.o. b.i.d. p.r.n. anxiety. 8. Decadron 6 mg p.o. b.i.d. CONDITION ON DISCHARGE: Fair. DISPOSITION: Home. TIME SPENT: Approximately 35 minutes was spent on this discharge, approximately half of this time was spent at bedside evaluating the patient and discussing the plan of care. YOLANDA CARCAMO [id number]/[facility] #: [id number] JESSICA
== END 2019-06-01 16:50 | disposition home or self-care (01) ==
LOC: ED 15:04 → MED 20:19 → OBSVTOIN 06-01 11:00 → INTOOBSV 06-01 11:00
PROVIDERS: ADMIT Hospitalist; ATTEND Internal Medicine
DX: J18.8 Other pneumonia, unspecified organism (principal); C34.90 Malignant neoplasm of unspecified part of unspecified bronchus or lung; C78.1 Secondary malignant neoplasm of mediastinum; C79.01 Secondary malignant neoplasm of right kidney and renal pelvis; C79.31 Secondary malignant neoplasm of brain; C79.81 Secondary malignant neoplasm of breast; I12.9 Hypertensive chronic kidney disease with stage 1 through stage 4 chronic kidney disease, or unspecified chronic kidney disease; N18.9 Chronic kidney disease, unspecified; Z87.442 Personal history of urinary calculi; D69.6 Thrombocytopenia, unspecified; E03.9 Hypothyroidism, unspecified; K21.9 Gastro-esophageal reflux disease without esophagitis; R31.9 Hematuria, unspecified; R94.31 Abnormal electrocardiogram [ECG] [EKG]; Z79.890 Hormone replacement therapy; Z79.899 Other long term (current) drug therapy; Z87.891 Personal history of nicotine dependence
CPT/HCPCS: 36415; 71046; 71275; 74177; 77014; 77290; 77334; 78707; 80048; 80053; 81003; 81015; 83605; 83735; 84484; 85025; 86140; 87040; 87086; 87899; 93005; 96361; 96365; 96366; 99236; 99284; A9270-GY; A9539; G0378; J0696; Q9967